=== PATIENT | male | born 1955 | race Caucasian/White ===

== ENCOUNTER 2019-02-19 03:39 | Inpatient (IN) | payer OTHER, BC ==
[2019-02-19] MEDS ORDERED: ASPIRIN 81 MG CHEWABLE TAB PO ONE (03:43)
[2019-02-19] MEDS ORDERED: NS 1,000 ML IV ONE (03:43)
--- NOTE | 2019-02-19 03:44 | EDPHY ---
H & P Time Seen by Provider: 02/19/19 03:56 HPI/ROS: HPI CHIEF COMPLAINT: Chest pressure. HISTORY OF PRESENT ILLNESS: Patient is a 63-year-old male, he presents emergency room with chest pressure. Patient reports to me this started much earlier tonight. However he went for walk tonight and had worn labored breathing and chest tightness. Describes a chest tightness across his chest however more the right side radiating to his right shoulder. He denies any pleuritic pain. However does state when he went for a walk today he was more labored than usual. He denies any pleuritic pain, denies any hemoptysis. No history of DVT or PE. Patient decided come the emergency room as he could not get sleep and had ongoing chest tightness. It is Noted that he is from out of town and flew [place], to visit his sister here in town. Past Medical History: Significant medical history for hyperlipidemia, diabetes denies coronary artery disease. Past Surgical History: Hand surgery, and knee surgery. Social History: Denies daily use of drugs alcohol tobacco. From [place] he does report is [address] he lives. He does know entire elevation here. Family History: Significant for coronary artery disease in his father with a CABG, additionally sitting for coronary artery disease in his sister with multiple stents. ROS REVIEW OF SYSTEMS: 10 Systems were reviewed and negative with the exception of the elements mentioned in the history of present illness. Exam Constitutional triage nursing summary reviewed, vital signs reviewed, awake/ alert. Noted be hypertensive upon arrival. Eyes normal conjunctivae and sclera, EOMI, PERRLA. HENT normal inspection, atraumatic, moist mucus membranes, no epistaxis, neck supple/ no meningismus, no raccoon eyes. Respiratory clear to auscultation bilaterally, normal breath sounds, no respiratory distress, no wheezing. Cardiovascular rate normal, regular rhythm, no murmur, no edema, distal pulses normal. Gastrointestinal soft, non-tender, no rebound, no guarding, normal bowel sounds, no distension, no pulsatile mass. Genitourinary no CVA tenderness. Musculoskeletal no midline vertebral tenderness, full range of motion, no calf swelling, no tenderness of extremities, no meningismus, good pulses, neurovascularly intact. Skin pink, warm, & dry, no rash, skin atraumatic. Neurologic awake, alert and oriented x 3, AAOx3, moves all 4 extremities equally, motor intact, sensory intact, CN II-XII intact, normal cerebellar, normal vision, normal speech. Psychiatric normal mood/affect. Heme/Lymph/Immune no lymphadenopathy. Differential Diagnosis: Differential diagnosis includes but is not limited to: ACS, atypical chest pain, pneumothorax, pneumonia, pulmonary embolism, aortic dissection, congestive heart failure, tumor, musculoskeletal pain, esophageal pain, GERD, peptic ulcer disease, pancreatitis Medical Decision Making: Plan for this patient IV establishment with athletic monitor, EKG, troponin rule out acute coronary syndrome, basic labs, chest x-ray , full-dose aspirin, nitroglycerin to see if this improves his chest tightness. Check D-dimer. Re-evaluation: EKG interpretation by me on record in [facility] system. Impression time of EKG 3:50 a.m., sinus rhythm rate of 90 left anterior fascicular block present. I do not appreciate acute ST elevation. No old EKG to compare to. HEART Score for Major Cardiac Events from [employer] on 02/19/2019 All calculations should be rechecked by clinician prior to use RESULT SUMMARY: 5 points Moderate Score (4-6 points) Risk of MACE of 12-16.6%. INPUTS: History > 2 = Highly suspicious EKG > 0 = Normal Age > 1 = 45-64 Risk factors > 2 = 3 risk factors or history of atherosclerotic disease Initial troponin > 0 = normal limit X-ray of the chest reviewed shows slightly wide mediastinum. Trop noted to be 0.07 D-dimer negative. Given the patient's wide mediastinum on chest x-ray plan for CT angiogram chest. Discussed CT imaging of his chest and agrees for CT angiogram for mediastinum on chest x-ray. Patient received 2 doses of nightly certain he emergent minimal improvement. Additionally received 50 mcgg IV fentanyl for pain control this improved discomfort. Plan for this patient admit to the hospitalist service for further cardiac evaluation. Patient agrees for this. Additionally consult the hospitalist service Dr. Ortez for admission. CT angiogram of the chest shows no evidence of pulmonary embolism, Probable mild bibasilar illness atelectasis but very mild interstitial pneumonia of the left lung base is not excluded. This was faxed me by direct Radiology at 6:20 a.m. Plan for hospital admission. Patient agrees. Hospitalist service consult. Source: Patient Constitutional: Initial Vital Signs Temperature (C) 36.9 C 02/19/19 03:44 Heart Rate 92 02/19/19 03:44 Respiratory Rate 17 02/19/19 03:44 Blood Pressure 164/108 H 02/19/19 03:44 O2 Sat (%) 94 02/19/19 03:44 O2 Delivery Mode Room Air Allergies/Adverse Reactions: metformin Allergy (Verified 02/19/19 03:43) morphine Allergy (Verified 02/19/19 03:43) Home Medications: Medication Instructions Recorded Atorvastatin Calcium [Lipitor 10 10 mg PO DAILY 02/19/19 mg (*)] Empagliflozin [Jardiance] 10 mg PO DAILY 02/19/19 Ibuprofen [Motrin (*)] 400 - 600 mg PO Q8H PRN 02/19/19 Meloxicam 15 mg PO DAILY 02/19/19 Medical Decision Making - Data Points Laboratory Results: Laboratory Results 02/19/19 04:04 02/19/19 04:04 Medications Given: Acetaminophen (Tylenol) 650 mg PO Q4HRS PRN PRN Reason: Pain, Mild/Fever, Can Take PO Stop: 08/18/19 06:15 Last Admin: 02/19/19 20:29 Dose: 650 mg Atorvastatin Calcium (Lipitor) 20 mg PO HS [facility] Stop: 08/18/19 20:59 Last Admin: 02/19/19 20:29 Dose: 20 mg Enoxaparin Sodium (Lovenox) 100 mg SC BID [facility] Stop: 08/18/19 20:59 Last Admin: 02/19/19 20:29 Dose: 100 mg Sodium Chloride (Ns) 1,000 mls @ 100 mls/hr IV CONT YESSI Stop: 08/18/19 08:59 Last Admin: 02/19/19 09:22 Dose: 1,000 mls Insulin Human Lispro (Humalog Lispro) 0 unit SC TIDMEAL YESSI PRN Reason: Protocol Stop: 08/18/19 17:59 Last Admin: 02/19/19 17:18 Dose: Not Given Metoprolol Tartrate (Lopressor) 25 mg PO BID [facility] Stop: 08/18/19 10:59 Last Admin: 02/19/19 20:28 Dose: 25 mg Nitroglycerin (Nitro-Bid 2%) 0.5 inch TP Q6HRS YESSI Stop: 08/18/19 11:59 Last Admin: 02/19/19 23:53 Dose: 0.5 inch Tramadol HCl (Ultram) 50 mg PO Q6HRS PRN PRN Reason: Pain, Moderate Able to Take PO Stop: 08/18/19 12:25 Last Admin: 02/20/19 03:34 Dose: 50 mg Discontinued Medications Aspirin (Aspirin) 324 mg PO EDNOW ONE Stop: 02/19/19 03:44 Last Admin: 02/19/19 03:59 Dose: 324 mg Aspirin Buffered (Aspirin Ec) 325 mg PO ONCALL ONE Stop: 02/19/19 08:48 Last Admin: 02/19/19 09:49 Dose: 325 mg Diazepam (Valium) 5 mg PO ONCALL ONE Stop: 02/19/19 08:48 Last Admin: 02/19/19 09:49 Dose: 5 mg Diphenhydramine HCl (Benadryl) 25 mg PO ONCALL ONE Stop: 02/19/19 08:48 Last Admin: 02/19/19 09:49 Dose: 25 mg Enoxaparin Sodium (Lovenox) 100 mg SC ONCE ONE Stop: 02/19/19 07:35 Last Admin: 02/19/19 09:53 Dose: Not Given Famotidine (Pepcid) 20 mg PO ONCALL ONE Stop: 02/19/19 08:48 Last Admin: 02/19/19 09:49 Dose: 20 mg Fentanyl (Sublimaze) 50 mcg IVP EDNOW ONE Stop: 02/19/19 04:18 Last Admin: 02/19/19 04:25 Dose: 50 mcg Fentanyl (Sublimaze) 50 mcg IVP ONCE ONE Stop: 02/19/19 07:29 Last Admin: 02/19/19 07:46 Dose: 50 mcg Sodium Chloride (Ns) 1,000 mls @ 0 mls/hr IV EDNOW ONE; Wide Open PRN Reason: Protocol Stop: 02/19/19 03:44 Last Admin: 02/19/19 04:21 Dose: 1,000 mls Nitroglycerin (Nitrostat) 0.4 mg SL EDNOW ONE Stop: 02/19/19 03:56 Last Admin: 02/19/19 04:11 Dose: 1 tab Ondansetron HCl (Zofran) 4 mg IVP EDNOW ONE Stop: 02/19/19 04:24 Last Admin: 02/19/19 04:25 Dose: 4 mg Point of Care Test Results: Chemistry 02/19/19 04:08 POC Troponin I 0.07 ng/mL ng/mL (0.00-0.08) Departure - Departure Disposition: [facility] Inpatient Acute Clinical Impression: Chest pain Qualifiers: Chest pain type: unspecified Qualified Code(s): R07.9 - Chest pain, unspecified Condition: Fair
[2019-02-19] MEDS: NITROGLYCERIN 0.4 MG BTL SL ONE ×2 (04:00→04:11)
[2019-02-19] MEDS ORDERED: fentaNYL 100 MCG/2 ML INJ IVP ONE ×2 (04:17→07:28)
[2019-02-19 04:18] LABS: PLATELET COUNT 246 10^3/uL (150-400)
[2019-02-19] MEDS ORDERED: ONDANSETRON 4 MG/2 ML VIAL IVP ONE (04:23)
[2019-02-19 04:26] LABS: INR 1.03 (0.83-1.16); PROTIME(PATIENT) 13.1 SEC (12.0-15.0)
[2019-02-19] MEDS ORDERED: IOPAMIDOL (ISOVUE-370) 150 ML BTL IV ONE ×2 (05:04→09:50)
[2019-02-19] MEDS ORDERED: ONDANSETRON DISINTEGRATING 4 MG TAB PO PRN (06:16)
[2019-02-19] MEDS ORDERED: ONDANSETRON 4 MG/2 ML VIAL IVP PRN (06:16)
[2019-02-19] MEDS ORDERED: NITROGLYCERIN 0.4 MG BTL SL PRN (06:18)
--- NOTE | 2019-02-19 06:52 | PDGENHP ---
History and Physical - Chief Complaint Chest pain - History of Present Illness 63 yo obese M w/ DM presents with chest pain. The patient is visiting from [place] where he lives at around 3,000 feet elevation. He has noted band-like chest tightness across his chest for the past few days. He notes this increased with exertion and also involves radiation down his R arm and BUTCHER. He denies pleuritic component. Evaluation in the ED so far unremarkable with negative troponin and non-ischemic ECG. He has a positive family hx for CAD. He has also been hypertensive while here but does not take medications for this usually. Case discussed with ED physician Dr. Rivera; records reviewed and summarized above. History Information - Allergies/Home Medication List Allergies/Adverse Reactions: metformin Allergy (Verified 02/19/19 03:43) morphine Allergy (Verified 02/19/19 03:43) Home Medications: Jardiance 02/19/19 [Last Taken Unknown] I have personally reviewed and updated: family history, medical history - Past Medical History diabetes type 2 - Surgical History Additional surgical history: Orthopedic surgeries - Family History Positive for: CAD - Social History Smoking Status: Never smoked Review of Systems Review of Systems: ROS: 10pt was reviewed & negative except for what was stated in HPI & below Physical Exam Physical Exam: Temp Pulse Resp BP Pulse Ox 36.9 C 75 18 172/100 H 90 L 02/19/19 03:44 02/19/19 06:00 02/19/19 06:00 02/19/19 06:00 02/19/19 06:00 Constitutional: no apparent distress, obese Eyes: PERRL, EOMI Ears, Nose, Mouth, Throat: moist mucous membranes, no oral mucosal ulcers Cardiovascular: regular rate and rhythym, no murmur, rub, or gallop Respiratory: no respiratory distress, clear to auscultation Gastrointestinal: normoactive bowel sounds, soft, non-tender abdomen Skin: warm, normal color Musculoskeletal: full muscle strength, no muscle tenderness Neurologic: AAOx3, CN II-XII Intact Psychiatric: interacting appropriately, not anxious Lab Data & Imaging Review 02/19/19 04:04 02/19/19 04:04 WBC 8.32 10^3/uL (3.80-9.50) 02/19/19 04:04 RBC 5.12 10^6/uL (4.40-6.38) 02/19/19 04:04 Hgb 16.3 g/dL (13.7-17.5) 02/19/19 04:04 Hct 47.8 % (40.0-51.0) 02/19/19 04:04 MCV 93.4 fL (81.5-99.8) 02/19/19 04:04 MCH 31.8 pg (27.9-34.1) 02/19/19 04:04 MCHC 34.1 g/dL (32.4-36.7) 02/19/19 04:04 RDW 12.1 % (11.5-15.2) 02/19/19 04:04 Plt Count 246 10^3/uL (150-400) 02/19/19 04:04 MPV 10.3 fL (8.7-11.7) 02/19/19 04:04 Neut % (Auto) 56.6 % (39.3-74.2) 02/19/19 04:04 Lymph % (Auto) 31.5 % (15.0-45.0) 02/19/19 04:04 [place] % (Auto) 8.9 % (4.5-13.0) 02/19/19 04:04 Eos % (Auto) 2.4 % (0.6-7.6) 02/19/19 04:04 Baso % (Auto) 0.4 % (0.3-1.7) 02/19/19 04:04 Nucleat RBC Rel Count 0.0 % (0.0-0.2) 02/19/19 04:04 Absolute Neuts (auto) 4.71 10^3/uL (1.70-6.50) 02/19/19 04:04 Absolute Lymphs (auto) 2.62 10^3/uL (1.00-3.00) 02/19/19 04:04 Absolute Monos (auto) 0.74 10^3/uL (0.30-0.80) 02/19/19 04:04 Absolute Eos (auto) 0.20 10^3/uL (0.03-0.40) 02/19/19 04:04 Absolute Basos (auto) 0.03 10^3/uL (0.02-0.10) 02/19/19 04:04 Absolute Nucleated RBC 0.00 10^3/uL (0-0.01) 02/19/19 04:04 Immature Gran % 0.2 % (0.0-1.1) 02/19/19 04:04 Immature Gran # 0.02 10^3/uL (0.00-0.10) 02/19/19 04:04 PT 13.1 SEC (12.0-15.0) 02/19/19 04:04 INR 1.03 (0.83-1.16) 02/19/19 04:04 APTT 29.8 SEC (23.0-38.0) 02/19/19 04:04 D-Dimer < 0.27 ug/mLFEU (0.00-0.50) 02/19/19 04:04 Sodium 140 mEq/L (135-145) 02/19/19 04:04 Potassium 3.9 mEq/L (3.5-5.2) 02/19/19 04:04 Chloride 108 mEq/L (97-110) 02/19/19 04:04 Carbon Dioxide 19 mEq/l (22-31) L 02/19/19 04:04 Anion Gap 13 mEq/L (6-14) 02/19/19 04:04 BUN 22 mg/dL (7-23) 02/19/19 04:04 Creatinine 0.7 mg/dL (0.7-1.3) 02/19/19 04:04 Estimated GFR > 60 02/19/19 04:04 Glucose 145 mg/dL (70-100) H 02/19/19 04:04 Calcium 9.2 mg/dL (8.5-10.4) 02/19/19 04:04 POC Troponin I 0.07 ng/mL (0.00-0.08) 02/19/19 04:08 NT-Pro-B Natriuret Pep 129 pg/mL (0-125) H 02/19/19 04:04 Visualized and Interpreted Chest x-ray results: Yes Chest X-Ray results: no infiltrate Visualized and Interpreted EKG results: Yes EKG Interpretation: Positive for: normal sinsus rhythm, other (LAFB) Assessment & Plan Assessment: 63 yo obese M w/ hx of DM presents with chest pain. Plan: 1. Chest pain - With typical features including worsening with exertion and associated BUTCHER. His initial evaluation is negative including negative troponin and ECG (personally reviewed/interpreted) without signs of acute ischemia. HEART score of 4 denoting need for further evaluation. - Observe in PCU - Monitor on telemetry, trend cardiac enzymes (next at 1000) - ECG, NTG PRN for chest pain - Will order treadmill stress test for further evaluation 2. DM - On oral medications as an outpatient. - Continue home meds pending reconciliation Diet - NPO Code - Full Ppx - LMWH Dispo - Admit under observation status
[2019-02-19] MEDS ORDERED: ENOXAPARIN 100 MG/ML SYR SC ONE (07:34)
[2019-02-19] MEDS ORDERED: fentaNYL 100 MCG/2 ML INJ ONE ×2 (07:36→09:49)
--- NOTE | 2019-02-19 07:55 | CPEKG ---
Test Reason : OPEN Blood Pressure : / mmHG Vent. Rate : 090 BPM Atrial Rate : 089 BPM P-R Int : 165 ms QRS Dur : 100 ms QT Int : 394 ms P-R-T Axes : 013 -67 060 degrees QTc Int : 482 ms Sinus rhythm Left anterior fascicular block Borderline prolonged QT interval Confirmed by Gurpreet Ahmadi ([id number]) on 02/19/2019 7:55:08 AM Referred By: Gurpreet Ahmadi Confirmed By:Gurpreet Ahmadi
[2019-02-19] MEDS ORDERED: TEMAZEPAM 15 MG CAP PO PRN (08:47)
[2019-02-19] MEDS ORDERED: diphenhydrAMINE 25 MG CAP PO ONE (08:47)
[2019-02-19] MEDS ORDERED: FAMOTIDINE 20 MG TAB PO ONE (08:47)
[2019-02-19] MEDS ORDERED: DIAZEPAM 5 MG TAB PO ONE (08:47)
[2019-02-19] MEDS ORDERED: ASPIRIN EC 325 MG TAB PO ONE (08:47)
--- NOTE | 2019-02-19 08:56 | PDCARCONS ---
Cardiology Consult Reason for Consult: Chest pain concerning for angina. Chief Complaint: Chest pain. Requesting Physician: Dr. Ortez. History of Present Illness: This is a 63-year-old male visiting from [facility]. He has no known cardiovascular disease. He does, however, have an extensive cardiovascular risk factor profile that includes gender, age, history of type 2 diabetes mellitus, hyperlipidemia, hypertension, central obesity and prior heavy tobacco use. He and his arrived to [place] a day ago. They are here to attend a concert. He states that for several days prior to coming to [place] he had a sensation of being fatigued. He would also experience mild chest pressure with physical activity such as shoveling his driveway and chipping ice. Since arriving here his discomfort has gotten worse. Yesterday evening he was with his rushing to catch a bus. Apparently they were walking very briskly. At that time, he developed an "uncomfortable" sensation in his central chest. This was an unfamiliar feeling to him. He notes radiation to his right shoulder and right upper extremity to the mid forearm. Once he got to the bus and sat and rested and took several minutes for the discomfort to nai. Afterwards he felt uncomfortable and fatigued throughout the rest of the evening. He was unable to enjoyed the concert. Later that evening when he was trying to sleep E had a similar sensation at rest. He tried to prop up his head with his pillows to alleviate the discomfort. He got out of bed was pacing in his hotel room. The pain was not alleviated with these activities. As result he came to the emergency department. In talking to him about this discomfort the pain is not positional. There is no respirophasic component to the discomfort. He does have a history of GERD on occasion. He thinks that this is different from that sensation. He has not had any palpitations, dizziness or lightheadedness. In the emergency department his ECG was remarkable only for left anterior fascicular block. His initial point of care troponin was negative. A subsequent troponin was 0.1. A chest CTA was negative for PE. Currently he is pain-free. History Information - Allergies/Home Medication List Allergies/Adverse Reactions: metformin Allergy (Verified 02/19/19 03:43) morphine Allergy (Verified 02/19/19 03:43) Home Medications: Atorvastatin Calcium [Lipitor 10 mg (*)] 10 mg PO DAILY 02/19/19 [Last Taken 08:00] Empagliflozin [Jardiance] 10 mg PO DAILY 02/19/19 [Last Taken 02/18/19 08:00] Ibuprofen [Motrin (*)] 400 - 600 mg PO Q8H PRN 02/19/19 [Last Taken 02/18/19] Meloxicam 15 mg PO DAILY 02/19/19 [Last Taken 02/18/19 08:00] I have personally reviewed and updated: family history, medical history, social history, surgical history Past Medical History: Obesity, obstructive sleep apnea, hypertension, hyperlipidemia, osteoarthritis, type 2 diabetes mellitus, obesity, history of hepatitis C status post treatment. - Surgical History Additional surgical history: Previous arthroscopic knee surgery, left carpal tunnel surgery. - Family History Additional family history: There is no family history for premature atherosclerosis however his father did have bypass surgery in his 70s. His sister has stents. - Social History Smoking Status: Former smoker Alcohol Use: Other (He drinks several beers daily.) Drug Use: None Additional social history: He is . He has 2 sons that are 18. He lives in [facility] and is retired. He is visiting the local area with his . RAMY Risk Evaluation age greater or equal to 65: yes greater or equal to 3 CAD risk factors: yes known CAD(stenosis greater or eqaul to 50%): no ASA use in past 7 days: no severe angina(greater or equal to 2 episodes in 24hrs): yes EKG ST changes greater or equal to 0.5mm: no positive cardiac marker: yes Total Score: 4 RAMY Score: 19.9% risk Physical Exam Physical Exam: Temp Pulse Resp BP Pulse Ox 36.8 C 663 H 15 160/95 H 97 02/19/19 08:07 02/19/19 08:07 02/19/19 08:07 02/19/19 08:07 02/19/19 08:07 O2 (L/minute) 3 Constitutional: no apparent distress, appears nourished, not in pain Eyes: PERRL, anicteric sclera, EOMI Ears, Nose, Mouth, Throat: moist mucous membranes, hearing normal, ears appear normal, no oral mucosal ulcers Cardiovascular: regular rate and rhythym, no murmur, rub, or gallop, No edema Respiratory: no respiratory distress, no rales or rhonchi, clear to auscultation Gastrointestinal: normoactive bowel sounds, soft, non-tender abdomen, no palpable masses Genitourinary: no bladder fullness, no bladder tenderness Skin: warm, normal color, no rashes or abrasions, no fluctuance, no induration, No mottled Musculoskeletal: full muscle strength, no muscle tenderness, normal joint ROM, no joint effusions Psychiatric: interacting appropriately, not anxious, not encephalopathic, thought process linear Lymph, Heme, Immunologic: no cervical LAD, no supraclavicular LAD Lab and Imaging 02/19/19 04:04 02/19/19 04:04 WBC 8.32 10^3/uL (3.80-9.50) 02/19/19 04:04 RBC 5.12 10^6/uL (4.40-6.38) 02/19/19 04:04 Hgb 16.3 g/dL (13.7-17.5) 02/19/19 04:04 Hct 47.8 % (40.0-51.0) 02/19/19 04:04 MCV 93.4 fL (81.5-99.8) 02/19/19 04:04 MCH 31.8 pg (27.9-34.1) 02/19/19 04:04 MCHC 34.1 g/dL (32.4-36.7) 02/19/19 04:04 RDW 12.1 % (11.5-15.2) 02/19/19 04:04 Plt Count 246 10^3/uL (150-400) 02/19/19 04:04 MPV 10.3 fL (8.7-11.7) 02/19/19 04:04 Neut % (Auto) 56.6 % (39.3-74.2) 02/19/19 04:04 Lymph % (Auto) 31.5 % (15.0-45.0) 02/19/19 04:04 [place] % (Auto) 8.9 % (4.5-13.0) 02/19/19 04:04 Eos % (Auto) 2.4 % (0.6-7.6) 02/19/19 04:04 Baso % (Auto) 0.4 % (0.3-1.7) 02/19/19 04:04 Nucleat RBC Rel Count 0.0 % (0.0-0.2) 02/19/19 04:04 Absolute Neuts (auto) 4.71 10^3/uL (1.70-6.50) 02/19/19 04:04 Absolute Lymphs (auto) 2.62 10^3/uL (1.00-3.00) 02/19/19 04:04 Absolute Monos (auto) 0.74 10^3/uL (0.30-0.80) 02/19/19 04:04 Absolute Eos (auto) 0.20 10^3/uL (0.03-0.40) 02/19/19 04:04 Absolute Basos (auto) 0.03 10^3/uL (0.02-0.10) 02/19/19 04:04 Absolute Nucleated RBC 0.00 10^3/uL (0-0.01) 02/19/19 04:04 Immature Gran % 0.2 % (0.0-1.1) 02/19/19 04:04 Immature Gran # 0.02 10^3/uL (0.00-0.10) 02/19/19 04:04 PT 13.1 SEC (12.0-15.0) 02/19/19 04:04 INR 1.03 (0.83-1.16) 02/19/19 04:04 APTT 29.8 SEC (23.0-38.0) 02/19/19 04:04 D-Dimer < 0.27 ug/mLFEU (0.00-0.50) 02/19/19 04:04 Sodium 140 mEq/L (135-145) 02/19/19 04:04 Potassium 3.9 mEq/L (3.5-5.2) 02/19/19 04:04 Chloride 108 mEq/L (97-110) 02/19/19 04:04 Carbon Dioxide 19 mEq/l (22-31) L 02/19/19 04:04 Anion Gap 13 mEq/L (6-14) 02/19/19 04:04 BUN 22 mg/dL (7-23) 02/19/19 04:04 Creatinine 0.7 mg/dL (0.7-1.3) 02/19/19 04:04 Estimated GFR > 60 02/19/19 04:04 Glucose 145 mg/dL (70-100) H 02/19/19 04:04 Calcium 9.2 mg/dL (8.5-10.4) 02/19/19 04:04 POC Troponin I 0.07 ng/mL (0.00-0.08) 02/19/19 04:08 Troponin I 0.110 ng/mL (0.000-0.034) H 02/19/19 06:33 NT-Pro-B Natriuret Pep 129 pg/mL (0-125) H 02/19/19 04:04 Visualized and Interpreted Chest x-ray results: Yes Chest X-ray Interpretation: no infiltrate, normal Visualized and Interpreted imaging results: No Visualized and Interpreted EKG results: Yes EKG additional interpertation: Normal sinus rhythm. Left axis deviation consistent with a left anterior fascicular block. Previous inferior infarct cannot be excluded. Telemetry: Normal sinus rhythm. Echocardiogram: None. A/P Assessment: This is a pleasant 63-year-old male who has no known cardiovascular disease who does, however, have an extensive and essentially coronary risk equivalent risk factor profile who presents with a clinical syndrome that suggests unstable angina pectoris. His near-term risk for cardiovascular events is very high given the fact that he is experiencing crescendo angina and has positive cardiac biomarkers. As result, my recommendation was for an upfront invasive diagnostic strategy. He and I discuss the risks, benefits and alternatives of cardiac catheterization. At this point, I think that we should proceed with angiography this morning. He is in agreement. Further recommendations will be made pending the results of that study. Review of Systems Review of Systems: - Review of Systems Constitutional: no symptoms reported EENTM: no symptoms reported Respiratory: see HPI Cardiac: see HPI Gastrointestinal/Abdominal: no symptoms reported Genitourinary: no symptoms Musculoskelatal: no symptoms Skin: no symptoms Neurological: no symptoms Hematologic/Lymphatic: no symptoms reported Immunologic/allergic: no symptoms reported All Other Systems: Reviewed and Negative
[2019-02-19] MEDS ORDERED: NS 1,000 ML IV SCH (09:00)
[2019-02-19] MEDS ORDERED: ENOXAPARIN 40 MG/0.4 ML SYR SC SCH (09:00)
[2019-02-19] MEDS ORDERED: LIDOCAINE 1% 300 MG/30 ML SDV ONE (09:49)
[2019-02-19] MEDS ORDERED: MIDAZOLAM 2 MG/2 ML VIAL ONE (09:50)
[2019-02-19] MEDS ORDERED: HEPARIN 10,000 UNIT/10 ML MDV (1,000 UNIT/ML) ONE (09:50)
[2019-02-19] MEDS ORDERED: VERAPAMIL 5 MG/2 ML VIAL ONE (09:50)
--- NOTE | 2019-02-19 10:20 | PDPROPOC ---
Sedation Plan of Care Sedation Plan of Care: vital signs stable, mental status noted, patient educated of risks, benefits, alternatives, patient can tolerate sedation ASA Classification: ASA 2 Planned drugs: fentanyl, midazolam Mallampati Score: Class 2 Mallampati Reference Image: Patient passed 3-3-2 rule?: Yes
--- NOTE | 2019-02-19 10:20 | PDHPUP ---
History & Physical Update H&P update statement: This history and physical update is based on an assessment of the patient which was completed after admission or registration (within 24 hours), but prior to the surgery/procedure. H&P update: H&P reviewed & patient examined, no change in patient's condition since H&P completed
[2019-02-19] MEDS ORDERED: ATROPINE SULFATE 1 MG/10 ML SYR IVP PRN (10:44)
--- NOTE | 2019-02-19 11:00 | PDDXCAT ---
Diagnostic Cath Note - . Date: 02/19/19 Pool Coordinator: Leon Indication: other (Unstable angina pectoris.) - Procedure Access: right groin Procedure: left heart catheterization, coronary angiography, left ventriculogram - Materials Left Heart Cath size: 6F Left Heart Cath materials: standard multipack (JL4, JR4, pigtail) - Findings-Left Heart Catheterization LM: Left main is a large caliber vessel which bifurcates into left anterior descending and circumflex distributions. There is distal tapering to 20%. There are no obstructive lesions. LAD: Proximally, left anterior descending is a moderate caliber vessel. There is a complex trifurcation lesion involving the 1st diagonal branch, 1st septal field test engineer and the LAD. This results in a 90% proximal LAD stenosis. The mid LAD contains a long segment of severe disease up to 90%. The distal vessel contains a region which would be a good target for grafting prior to severe distal disease. The 1st diagonal branch is a large caliber diagonal which bifurcates proximally. In the midportion of this vessel there was a 70% lesion. LCX: In the proximal vessel the circumflex is moderate in caliber. The vessel is then occluded in the proximal/mid segment. There is late filling of a large obtuse marginal branch via ipsilateral collaterals. RCA: The right coronary artery is a large caliber dominant vessel. There is a large posterior descending as well as a posterolateral branch identified. A 30 % proximal lesion is noted. There was a 50% mid lesion at the bend prior to coursing onto the inferior wall of the heart. LVEF: 65%. No significant mitral regurgitation. Wall motion: Normal. Complications: None. Estimated blood loss: <50ml Closure method: Angioseal Assessment: 1. Multivessel coronary artery disease as described above involving the proximal LAD. 2. Preserved left ventricular systolic function without obvious valvular heart disease. 3. Elevated end-diastolic pressure. 4. Clinical presentation with unstable angina pectoris in the setting of longstanding type 2 diabetes mellitus. Plan: Patient will be medically stabilized. We will consult Cardiovascular surgery regarding surgical epicardial coronary revascularization. Intervention: None. Patient Problems: Problems Problem Status Onset Chest pain Acute
[2019-02-19] MEDS ORDERED: NITROGLYCERIN 2% 1 GM PACKET ONE (11:30)
[2019-02-19] MEDS: NITROGLYCERIN 2% 1 GM PACKET TP SCH ×3 (11:30→23:53)
[2019-02-19] MEDS: traMADol 50 MG TAB PO PRN (13:46)
[2019-02-19] MEDS: METOPROLOL TARTRATE 25 MG TAB PO SCH ×2 (13:47→20:28)
[2019-02-19] MEDS ORDERED: D50W 25 GM/50 ML SYR IVP PRN (16:43)
--- NOTE | 2019-02-19 16:45 | HOSPPROG ---
Hospitalist Progress Note Assessment/Plan: #CAD: cath showed multi-vessel disease -CABG planned for Thursday per CT surgery -statin, BB, Lovenox #DM2: Jardiance, SSI #Obesity: counseled on diet/exercise #Accelerated HTN: BB added Inpatient admission for telemetry, CABG Thursday Subjective: no chest pain now Objective: Vital Signs Temp Pulse Resp BP Pulse Ox 37.1 C 77 17 151/93 H 96 02/19/19 15:28 02/19/19 15:28 02/19/19 15:28 02/19/19 15:28 02/19/19 15:28 02/18/19 02/19/19 02/20/19 05:59 05:59 05:59 Intake Total 1450 Balance 1450 PT 13.1 SEC (12.0-15.0) 02/19/19 04:04 INR 1.03 (0.83-1.16) 02/19/19 04:04 - Physical Exam Constitutional: obese Eyes: PERRL Ears, Nose, Mouth, Throat: moist mucous membranes Cardiovascular: regular rate and rhythym Respiratory: no respiratory distress Gastrointestinal: normoactive bowel sounds Genitourinary: no bladder fullness Skin: warm Musculoskeletal: full muscle strength Neurologic: AAOx3, CN II-XII Intact ICD10 Worksheet Patient Problems: Problems Problem Status Onset Chest pain Acute
[2019-02-19] MEDS: INSULIN LISPRO 100 UNIT/ML SC SCH (17:18)
[2019-02-19] MEDS: ENOXAPARIN 100 MG/ML SYR SC SCH (20:29)
[2019-02-19] MEDS: ACETAMINOPHEN 325 MG TAB PO PRN (20:29)
[2019-02-19] MEDS: ATORVASTATIN CALCIUM 20 MG TAB PO SCH (20:29)
--- NOTE | 2019-02-19 22:05 | GCON ---
[f rep st] CONSULTATION DATE OF CONSULTATION: 02/19/2019 REASON FOR CONSULTATION: Multivessel coronary artery disease. HISTORY: The patient is a 63-year-old gentleman visiting from [place] for a concert and has develope d angina. His past medical history is remarkable for diabetes, hypertension, and smoking. Because h is chest discomfort was not relieved by rest, the patient came to the emergency department and was ad mitted with coronary artery disease and mildly elevated troponin. PAST MEDICAL HISTORY: As listed above, hypertension, hyperlipidemia, obesity, tobacco use, type 2 di abetes. MEDICATIONS: Atorvastatin, empagliflozin, ibuprofen and meloxicam. SOCIAL HISTORY: He is . He is a former smoker and drinks several beers a day. PHYSICAL EXAMINATION: GENERAL: Today, he is recumbent in bed and pain free. HEENT: Shows normal s clerae. Dentition is in good condition. CARDIOVASCULAR: No murmur. RESPIRATORY: Lungs are clear. SKIN: Warm and dry. Saphenous vein appears to be intact. LABORATORY STUDIES: Hematocrit 47.8, creatinine 0.7. Review of his cardiac catheterization shows multivessel coronary disease with subtotal occlusion of t he LAD and circumflex. There is also disease in the proximal diagonal and the right coronary artery. IMPRESSION: Multivessel coronary artery disease with unstable angina in a 63-year-old diabetic. RECOMMENDATIONS: I have recommended the patient undergo surgical revascularization. We discussed th e risks, benefits, and alternatives, and he is agreeable to proceed. We are planning for surgery on Thursday morning as long as he remains pain free. /[id number]/MODL
[2019-02-20] MEDS: traMADol 50 MG TAB PO PRN (03:34)
[2019-02-20] MEDS: NITROGLYCERIN 2% 1 GM PACKET TP SCH ×4 (06:05→22:19)
--- NOTE | 2019-02-20 08:28 | ECHO ---
[email or web address] [address] [address] Main: [phone] Echocardiography Examination Transthoracic Name: EMORY MICHELLE MR#: [id number] Study Date: 02/19/2019 Study Time: 02:15 PM Date of : 1955 Age: 63 year(s) Height: 172.7 cm (68 in.) Weight: 99.34 kg (219 lb.) BSA: 2.12 m2 Gender: Male Examination: Echo Contrast: Image Quality: Adequate Rhythm: Heart Rate: BP: 157 mmHg/98 mmHg Indication: Coronary artery disease Procedure Staff Referring Physician: Material Handler Loader: Lesley Hadley [facility] Reading Physician: Juan Quintero MD Requesting Provider: Ordering Physician: Juan Quintero MD Indication: Coronary artery disease Measurements Chambers AV/MV Label Value Normal Value Label Value Normal Value IVSd, 2D 1.5 cm (0.6cm - 1.1cm) AV PGmax 4 mmHg LVDd, 2D 5.4 cm (4.2cm - 5.9cm) AV PGmean 2 mmHg LVDs, 2D 3.6 cm (2.1cm - 4cm) AV Vmax 0.96 m/s LVOT PGmean 1 mmHg RADHA D (continuity eq. 2.9 cm2 LVOT Vmean 0.57 m/s VTI) LVOTd 2.3 cm (1.9cm - 2.1cm) MV A Vmax 0.73 m/s LVPWd, 2D 1.4 cm (0.6cm - 1cm) MV DT 271 ms RVDd, 2D 3.4 cm (1.9cm - 3.8cm) MV E' lateral 0.04 m/s LA Volume, BP 45 ml (18ml - 58ml) MV E' mean 0.05 m/s LADs, 2D 3.5 cm (3cm - 4cm) MV E' septal 0.06 m/s LAESV index, BP 21.2 ml/m2 MV E Vmax 0.37 m/s RA Area 14.7 cm2 MV E/A 0.51 Additional Vessels MV E/E' lateral 10 Label Value Normal Value MV E/E' mean 7.4 AoAsc 3.6 cm MV E/E' septal 6.6 (0.45 - 1.25) AoRoot, 2D 3.3 cm (1.4cm - 2.6cm) MV PHT 0.08 s IVC 1.7 cm (1.2cm - 2.3cm) MV PHT 80 ms MVA PHT 2.8 cm2 TV/PV Patient: EMORY MICHELLE Study Date: 02/19/2019 Page 1 of 2 02:15 PM Label Value Normal Value PV PGmax 3 mmHg PV Vmax, Caliper 0.92 m/s (0.6m/s - 0.9m/s) Conclusions Technically difficult study with poor acoustic windows. Normal left ventricular size and systolic function. LVEF estimated at 55-60%. No regional wall motion abnormalities however this study was suboptimal for excluding regionality. Normal diastolic function. Normal valvular structures. Trivial mitral regurgitation, trivial aortic regurgitation and trivial tricuspid regurgitation. Insufficient tricuspid regurgitant jet to estimate RVSP. Findings Technically difficult apical imaging due to body habitus - limited windows. Left Ventricle: Left ventricle is normal in size. EF range is estimated at 55 % - 60 %. There is moderate concentric left ventricular hypertrophy. Left ventricular diastolic function parameters are normal. Right Ventricle: Normal size right ventricle. Right ventricular systolic function is normal. Left Atrium: The left atrium is normal in size. Right Atrium: The right atrium is normal in size. Mitral Valve: Mitral valve appears structurally normal. Trivial mitral regurgitation. No mitral valve stenosis. Aortic Valve: Aortic leaflets are structurally normal. Trivial aortic regurgitation is present. There is no aortic stenosis. Tricuspid Valve: Tricuspid valve leaflets are structurally normal. Trivial tricuspid regurgitation. Pulmonic Valve: Pulmonic leaflets are structurally normal. Trivial pulmonic valve regurgitation is present. Aorta: The aortic root size in 2D measures 3.3 cm. The ascending aorta measures 3.6 cm. Aorta Measurements AoRoot, 2D is 3.3 cm. IVC: The inferior vena cava is normal in size. Pericardium: A pericardial fat pad is present. No pericardial effusion. Exam Details Procedure Ordered: Echo Procedure Status: Routine study Image Quality: Adequate Facility Location: Cardiac Echo 1 (No Signature Object) Patient: EMORY MICHELLE Study Date: 02/19/2019 Page 2 of 2 02:15 PM [id number]
--- NOTE | 2019-02-20 08:39 | HOSPPROG ---
Hospitalist Progress Note Assessment/Plan: #CAD: cath showed multi-vessel disease -CABG planned for Thursday per CT surgery -statin, BB increased to 50mg BID, Lovenox (hold after evening dose) -trop 9, repeat EKG #DM2: Jardiance, SSI #Obesity: counseled on diet/exercise #Accelerated HTN: BB added Inpatient admission for telemetry, CABG tomorrow Subjective: MARTINEZ overnight, no CP or SOB Objective: Vital Signs Temp Pulse Resp BP Pulse Ox 37.0 C 83 15 139/77 H 90 L 02/20/19 07:23 02/20/19 07:23 02/20/19 07:23 02/20/19 07:23 02/20/19 07:23 02/19/19 02/20/19 02/21/19 05:59 05:59 05:59 Intake Total 1750 Balance 1750 PT 13.1 SEC (12.0-15.0) 02/19/19 04:04 INR 1.03 (0.83-1.16) 02/19/19 04:04 - Time Spent With Patient Time Spent with Patient: greater than 35 minutes Time Spent with Patient: Greater than 35 minutes spent on this patients care, greater than 50% of time spent counseling, educating, and coordinating care regarding the above mentioned plan. - Physical Exam Constitutional: obese Eyes: PERRL Ears, Nose, Mouth, Throat: moist mucous membranes Cardiovascular: regular rate and rhythym, No edema Respiratory: no respiratory distress Gastrointestinal: normoactive bowel sounds Genitourinary: no bladder fullness Skin: warm Musculoskeletal: full muscle strength Neurologic: AAOx3, CN II-XII Intact ICD10 Worksheet Patient Problems: Problems Problem Status Onset Chest pain Acute
[2019-02-20] MEDS: INSULIN LISPRO 100 UNIT/ML SC SCH ×3 (08:42→18:15)
[2019-02-20] MEDS: METOPROLOL TARTRATE 25 MG TAB PO SCH (09:04)
[2019-02-20] MEDS: ENOXAPARIN 100 MG/ML SYR SC SCH ×2 (09:05→20:40)
--- NOTE | 2019-02-20 09:38 | SOAPPROG ---
SOETHAN Progress Note Assessment/Plan: Assessment: 1 NSTEMI. He presented with chest discomfort and elevated cardiac biomarkers. His ECG did not demonstrate any ischemic changes. Cardiac catheterization demonstrated multivessel CAD as outlined in a separate report. His ejection fraction appears to be normal. He has not had any recurrence of his index related complaints. Thus far, his troponin has peaked at 9. Plans are for coronary artery bypass graft surgery tomorrow as long as he remains stable. 2. Hypertension. Blood pressure is poorly controlled at this point. 3. Hyperlipidemia. He does have significant hypertriglyceridemia. I think this is likely related to poorly controlled diabetes. 4. Type 2 diabetes mellitus. Hemoglobin A1c currently pending. He is being treated with insulin per his outpatient dosing regimen. 5. Obstructive sleep apnea. 6. Obesity. Plan: 1. I have increased his metoprolol up to 50 mg twice daily. 2. I have also written to restart his aspirin which apparently was given yesterday however was not on his medication list for today. 3. His Lovenox will be discontinued after his p.m. Dose. 4. I would like him to have an ECG today. I have also written for an additional troponin to be drawn at noon. 5. As long as he remains stable will plan for CABG tomorrow. 02/20/19 09:39 Subjective: There have been no problems overnight. He has not experienced any significant anginal quality chest discomfort. On telemetry he has been in sinus rhythm with no arrhythmias. This morning he states he has a slight headache which he thinks is related to his nitroglycerin. He notes no shortness of breath. Hemodynamically he has been stable. Despite being on metoprolol he continues to be slightly tachycardic. He had an echocardiogram done. There is a full and separately dictated report on the chart. This demonstrated a normal ejection fraction without significant valvular heart disease. Objective: Vital Signs Temp Pulse Resp BP Pulse Ox 37.0 C 96 15 139/77 H 90 L 02/20/19 07:23 02/20/19 09:04 02/20/19 07:23 02/20/19 07:23 02/20/19 07:23 02/19/19 02/20/19 02/21/19 05:59 05:59 05:59 Intake Total 1750 Balance 1750 PT 13.1 SEC (12.0-15.0) 02/19/19 04:04 INR 1.03 (0.83-1.16) 02/19/19 04:04 Physical Exam - Physical Exam General Appearance: WD/WN, alert, no apparent distress EENT: PERRL/EOMI, normal ENT inspection, pharynx normal, TMs normal Neck: non-tender, full range of motion, supple, normal inspection Respiratory: chest non-tender, lungs clear, normal breath sounds Cardiac/Chest: normal peripheral pulses, regular rate, rhythm Peripheral Pulses: 2+: carotid (R), carotid (L), femoral (R), femoral (L), dorsalis-pedis (R), dorsalis-pedis (L) Abdomen: normal bowel sounds, non-tender, soft Male Genitalia: deferred Rectal: deferred Back: Normal inspection Skin: normal color, warm/dry Lymphatic: no adenopathy Extremities: normal range of motion, non-tender, normal inspection, normal capillary refill Neuro/Psych: no motor/sensory deficits, alert, normal mood/affect, oriented x 3 ICD10 Worksheet Patient Problems: Problems Problem Status Onset Chest pain Acute
--- NOTE | 2019-02-20 10:35 | SOAPPROG ---
SOAP Progress Note Assessment/Plan: PRE-OP CABG THURSDAY SEVERE 3V CAD - LM 20% p/mLAD 90% D1 70% pCx 100% pPDA/JC 30%/50%, TTE with LVEF 55-60% wo RVMA (suboptimal study). No significant valvular disease. CUS not indicated per Dr. Wright. Creatinine function normal. Started on BB and increased statin per Dr. Quintero. NSTEMI - troponin today 9.8 and yet to peak. Chest pain free on nitro patch. T2DM - A1c pending, home Jardiance RYLIE OBESITY HISTORY OF HEP C S/P RX PLAN: Consent obtained and placed in clear portion of patient's binder Pre-op orders placed Last Lovenox dose this evening NPO p MN Subjective: Denies chest pain. Headache has resolved. Objective: Vital Signs Temp Pulse Resp BP Pulse Ox 37.0 C 96 15 139/77 H 90 L 02/20/19 07:23 02/20/19 09:04 02/20/19 07:23 02/20/19 07:23 02/20/19 07:23 02/19/19 02/20/19 02/21/19 05:59 05:59 05:59 Intake Total 1750 Balance 1750 PT 13.1 SEC (12.0-15.0) 02/19/19 04:04 INR 1.03 (0.83-1.16) 02/19/19 04:04 VSS GEN: NAD, sitting upright HEENT: NCAT, MMM Resp: NC oxygen Extremities: no edema ICD10 Worksheet Patient Problems: Problems Problem Status Onset Chest pain Acute
--- NOTE | 2019-02-20 10:39 | ASMTCMCOM ---
CM Note CM Note Notes: Pt is a 63 y/o man admitted for chest pain. Pt is getting coronary artery bypass graft surgery tomorrow. Pt will most likely d/c independent when medically stable. CM available for changes. Plan: Independent Date Signed: 02/20/2019 10:38 AM Electronically Signed By:JOSE R Drake
[2019-02-20] MEDS: Empagliflozin [Jardiance] 10 MG PO SCH (12:19)
[2019-02-20] MEDS: ASPIRIN 325 MG TAB PO SCH (12:19)
--- NOTE | 2019-02-20 15:31 | PDMN ---
Medical Necessity Medical necessity: Pt meets IP criteria as of 02/19/19 per MD and MCG M-230 ( Myocardial Infarction): est los > 2 mn for NSTEMI with chest pain and multiple vessel disease noted during cardiac cath; requiring CABG, cardiac monitoring, medication management and post-op care. Hx, obesity and DM II.
[2019-02-20] MEDS: ACETAMINOPHEN 325 MG TAB PO PRN ×2 (16:52→22:23)
[2019-02-20] MEDS: METOPROLOL TARTRATE 50 MG TAB PO SCH (20:41)
[2019-02-20] MEDS: ATORVASTATIN CALCIUM 20 MG TAB PO SCH (20:41)
[2019-02-20] MEDS ORDERED: CHLORHEXIDINE GLUC HIBICLENS 118 ML BTL TP SCH (21:00)
[2019-02-21] MEDS ORDERED: CARDIOPLEGIC SOLUTION 1,052.8 ML PF ONE (06:00)
[2019-02-21] MEDS ORDERED: VERAPAMIL 5 MG, NITROGLYCERIN 2.5 MG, HEPARIN 500 UNIT, SODIUM BICARBONATE 0.2 MEQ in L... MISC ONE (06:00)
[2019-02-21] MEDS ORDERED: CITRATE DEXTROSE SOLN 500 ML BAG MISC ONE (06:00)
[2019-02-21] MEDS ORDERED: LIDOCAINE 1% 2 ML INJ ID PRN (06:00)
[2019-02-21] MEDS ORDERED: PHENYLEPHRINE HCL 50 MG in NS 250 ML IV ONE (06:00)
[2019-02-21] MEDS ORDERED: PAPAVERINE HCL 60 MG in NS 100 ML IV ONE (06:00)
[2019-02-21] MEDS ORDERED: NOREPINEPHRINE BITARTRATE 16 MG in NS 250 ML IV ONE (06:00)
[2019-02-21] MEDS ORDERED: AMINOCAPROIC ACID 5 GM/20 ML VIAL IV ONE (06:00)
[2019-02-21] MEDS ORDERED: MUPIROCIN 2% 22 GM OINT NS ONE (06:00)
[2019-02-21] MEDS ORDERED: INSULIN REGULAR HUMAN 100 UNIT in NS 100 ML IV ONE (06:00)
[2019-02-21] MEDS ORDERED: NS 1,000 ML IV ONE (06:00)
[2019-02-21] MEDS ORDERED: MANNITOL 25% 12.5 GM/50 ML VIAL IVP ONE (06:00)
[2019-02-21] MEDS ORDERED: ceFAZolin 2 GM/DEXTROSE 100 ML IV ONE (06:00)
--- NOTE | 2019-02-21 07:58 | PDHPUP ---
History & Physical Update H&P update statement: This history and physical update is based on an assessment of the patient which was completed after admission or registration (within 24 hours), but prior to the surgery/procedure. H&P update: no change in patient's condition since H&P completed
[2019-02-21] MEDS ORDERED: DOBUTamine 500 MG in D5W 250 ML IV ONE (08:00)
[2019-02-21] MEDS ORDERED: PAPAVERINE HCL 60 MG/2 ML SDV ONE (08:16)
[2019-02-21] MEDS ORDERED: CALCIUM CHLORIDE 1 GM/10 ML INJ ONE ×3 (08:45→08:47)
[2019-02-21] MEDS ORDERED: MILRINONE/DEXTROSE/100 ML BAG IV ONE (08:46)
[2019-02-21] MEDS ORDERED: niCARdipine/NACL/200 ML BAG IV ONE ×2 (08:46→23:30)
[2019-02-21] MEDS ORDERED: AMIODARONE HCL 150 MG/3 ML VIAL ONE ×2 (08:46→08:48)
[2019-02-21] MEDS ORDERED: PROTAMINE SULFATE 50 MG/5 ML VIAL IVP ONE (08:46)
[2019-02-21] MEDS ORDERED: ADENOSINE 6 MG/2 ML VIAL ONE (08:46)
[2019-02-21] MEDS ORDERED: NA BICARBONATE 50 MEQ/50 ML VIAL ONE (08:46)
[2019-02-21] MEDS ORDERED: HEPARIN 10,000 UNIT/10 ML MDV (1,000 UNIT/ML) ONE ×2 (08:46→08:48)
[2019-02-21] MEDS ORDERED: AMINOCAPROIC ACID 5 GM/20 ML VIAL ONE ×2 (08:46→08:47)
[2019-02-21] MEDS ORDERED: DOPamine/DEXTROSE 400 MG/250 ML BAG IV ONE (08:46)
[2019-02-21] MEDS ORDERED: ALBUMIN 5% 250 ML BOTTLE IV ONE ×2 (08:47→15:30)
[2019-02-21] MEDS ORDERED: ceFAZolin 1 GM VIAL ONE (08:47)
[2019-02-21] MEDS ORDERED: NITROGLYCERIN/D5W 50 MG/250 ML BOTTLE IV ONE (08:47)
[2019-02-21] MEDS ORDERED: SODIUM BICARBONATE 50 MEQ/50 ML SYR ONE (08:47)
[2019-02-21] MEDS ORDERED: CITRATE DEXTROSE SOLN 500 ML BAG ONE (08:48)
[2019-02-21] MEDS ORDERED: LIDOCAINE 2% 100 MG/5 ML SYR ONE (08:48)
[2019-02-21] MEDS ORDERED: methylPREDNISolone SOD SUCC 1 GM/8 ML VIAL ONE (08:48)
[2019-02-21] MEDS ORDERED: MAGNESIUM SULFATE 1 GM/2 ML VIAL ONE (08:48)
[2019-02-21] MEDS ORDERED: MUPIROCIN 2% 22 GM OINT ONE (09:51)
[2019-02-21] MEDS ORDERED: CEFAZOLIN 2 GM/DEXTROSE/100 ML BAG IV ONE (09:51)
[2019-02-21] MEDS ORDERED: MIDAZOLAM 2 MG/2 ML VIAL IVP ONE (10:13)
--- NOTE | 2019-02-21 10:13 | PDANEPAE ---
ANE History of Present Illness cab ANE Past Medical History - Cardiovascular History Hx Hypertension: Yes Hx Arrhythmias: No Hx Chest Pain: Yes Hx Coronary Artery / Peripheral Vascular Disease: Yes Hx CHF / Valvular Disease: No Hx Palpitations: No - Pulmonary History Hx COPD: No Hx Asthma/Reactive Airway Disease: No Hx Recent Upper Respiratory Infection: No Hx Oxygen in Use at Home: No O2 in Use at Home (L/minute): 2 Hx Sleep Apnea: No Sleep Apnea Screening Result - Last Documented: Positive - Neurologic History Hx Cerebrovascular Accident: No Hx Seizures: No Hx Dementia: No - Endocrine History Hx Diabetes: Yes Hypothyroid: No Hyperthyroid: No Obesity: no - Renal History Hx Renal Disorders: No - Liver History Hx Hepatic Disorders: No - Neurological & Psychiatric Hx Hx Neurological and Psychiatric Disorders: No ANE Review of Systems Review of Systems: - Exercise capacity Exercise capacity: <4 METS ANE Patient History - Allergies Allergies/Adverse Reactions: metformin Allergy (Verified 02/19/19 03:43) morphine Allergy (Verified 02/19/19 03:43) - Home Medications Home Medications: Atorvastatin Calcium [Lipitor 10 mg (*)] 10 mg PO DAILY 02/19/19 [Last Taken 08:00] Empagliflozin [Jardiance] 10 mg PO DAILY 02/19/19 [Last Taken 02/18/19 08:00] Ibuprofen [Motrin (*)] 400 - 600 mg PO Q8H PRN 02/19/19 [Last Taken 02/18/19] Meloxicam 15 mg PO DAILY 02/19/19 [Last Taken 02/18/19 08:00] - NPO status NPO Status: no food or drink >8 hours NPO Since - Liquids (Date): 02/21/19 NPO Since - Liquids (Time): 00:00 NPO Since - Solids (Date): 02/21/19 NPO Since - Solids (Time): 00:00 - Anes Hx Anes Hx: no prior problems - Smoking Hx Smoking Status: Former smoker - Alcohol Use Alcohol Use: Other (He drinks several beers daily.) ANE Labs/Vital Signs - Labs Result Diagrams: 02/19/19 04:04 02/19/19 04:04 - Vital Signs Blood Pressure: 152/100 Heart Rate: 94 Respiratory Rate: 94 O2 Sat (%): 98 Height: 172.72 cm Weight: 97.25 kg ANE Physical Exam - Airway Mallampati Score: Class 2 Mouth exam: normal dental/mouth exam - Pulmonary Pulmonary: no respiratory distress - Cardiovascular Cardiovascular: regular rate and rhythym - ASA Status ASA Status: III ANE Anesthesia Plan Anesthesia Plan: general endotracheal anesthesia Lines/Monitors: arterial line, central line, SONALI (pa cath)
[2019-02-21] MEDS ORDERED: SUCCINYLCHOLINE CHLORIDE 200 MG/10 ML SYR IVP ONE (10:21)
[2019-02-21] MEDS ORDERED: ROCURONIUM 100 MG/10 ML VIAL ONE (10:21)
[2019-02-21] MEDS ORDERED: PHENYLEPHRINE 10 MG/ML SDV ONE (10:21)
[2019-02-21] MEDS ORDERED: EPINEPHrine 1 MG/ML INJ ONE (10:21)
[2019-02-21] MEDS ORDERED: LIDOCAINE 2% 5 ML SDV ONE (10:21)
[2019-02-21] MEDS ORDERED: MIDAZOLAM 2 MG/2 ML VIAL ONE ×3 (10:29→14:42)
[2019-02-21] MEDS ORDERED: fentaNYL 250 MCG/5 ML INJ ONE ×2 (10:29→10:30)
[2019-02-21] MEDS ORDERED: PROPOFOL 200 MG/20 ML VIAL ONE (10:30)
[2019-02-21] MEDS ORDERED: LABETALOL HCL 5 MG/ML 20 ML MDV ONE (11:40)
[2019-02-21] MEDS ORDERED: ISOFLURANE 100 ML BOTTLE IH ONE (12:39)
[2019-02-21] MEDS ORDERED: ROCURONIUM 50 MG/5 ML VIAL ONE (13:06)
[2019-02-21] MEDS ORDERED: PROPOFOL/EMULSION 500 MG/50 ML BOTTLE IV ONE (15:06)
--- NOTE | 2019-02-21 15:47 | POSTOPPROG ---
Post Op Note Date of Operation: 02/21/19 Surgeon: Juan Wright Assistant: Te MOODY Anesthesiologist: Srikanth KEE Anesthesia: GET(General Endotracheal) Pre-op Diagnosis: cad Post-op Diagnosis: same Procedure: s/p cabgx4 (FARMER-LAD, SVG-RCA, SVG-D1-M1) Findings: diseased targets Inf/Abcess present in the surg proc area at time of surgery?: No Depth: Organ Space EBL: 100-500 Complications: none Drains: Other (Chest tubes (1 left, 1 right, 1 mediastinal), 2 V Wires) Specimen(s): none
[2019-02-21] MEDS ORDERED: MEPERIDINE 25 MG/0.5 ML AMP IVP PRN (15:50)
[2019-02-21] MEDS ORDERED: ONDANSETRON DISINTEGRATING 4 MG TAB PO PRN (15:50)
[2019-02-21] MEDS ORDERED: POLYETHYLENE GLYCOL 3350 17 GM PKT PO PRN (15:50)
[2019-02-21] MEDS ORDERED: MAGNESIUM HYDROXIDE 30 ML UDCUP PO PRN (15:50)
[2019-02-21] MEDS ORDERED: PANTOPRAZOLE SODIUM 40 MG VIAL IVP ONE (15:50)
[2019-02-21] MEDS ORDERED: ACETAMINOPHEN 650 MG SUPP PR PRN (15:50)
[2019-02-21] MEDS ORDERED: METOCLOPRAMIDE 10 MG/2 ML VIAL IVP PRN (15:50)
[2019-02-21] MEDS ORDERED: LACTULOSE 20 GM/30 ML UDCUP PO PRN (15:50)
[2019-02-21] MEDS ORDERED: D50W 25 GM/50 ML SYR IVP PRN (15:50)
[2019-02-21] MEDS ORDERED: CEPACOL LOZENGE PO PRN (15:50)
[2019-02-21] MEDS ORDERED: ONDANSETRON 4 MG/2 ML VIAL IVP PRN (15:50)
[2019-02-21] MEDS ORDERED: ALBUMIN 5% 250 ML IV PRN (15:50)
[2019-02-21] MEDS ORDERED: BISACODYL 10 MG SUPP PR PRN (15:50)
[2019-02-21] MEDS ORDERED: SODIUM CL NASAL 45 ML BTL EACHNARE PRN (15:50)
[2019-02-21] MEDS ORDERED: NS 1,000 ML IV SCH (16:00)
[2019-02-21] MEDS ORDERED: INSULIN REGULAR HUMAN 100 UNIT in NS 100 ML IV SCH (16:00)
--- NOTE | 2019-02-21 16:04 | GOP ---
[f rep st] OPERATIVE REPORT DATE OF OPERATION: 02/21/2019 SURGEON: Juan Wright MD MANAGER CHANGE: PHILIP Tamayo. PREOPERATIVE DIAGNOSIS: Coronary artery disease with unstable angina and acute myocardial infarction . POSTOPERATIVE DIAGNOSIS: Coronary artery disease with unstable angina and acute myocardial infarctio n. PROCEDURE PERFORMED: Quadruple coronary artery bypass grafting. Summary of grafts: Left internal m ammary artery to the left anterior descending, saphenous vein graft from the aorta to D1, saphenous v ein graft from the aorta to M1, status vein graft from the aorta to distal right coronary artery. En doscopic vein harvest from the right leg. FINDINGS: The pericardial space was free. The aorta was soft. The vein was a good quality 2 to 4 m m vessel. The mammary was a good quality vessel. The distal targets were reasonable with a large ri ght coronary target. The lumen of the marginal vessel, which was subtotally occluded, was measured a t 1.25 mm with a shunt. The diagonal was a good quality big vessel and the distal left anterior desc ending was small at 1.5 mm. INDICATIONS: The patient is a 63-year-old gentleman who was admitted with unstable angina. He had a troponin rise and cardiac catheterization showed multivessel coronary artery disease with subtotal o cclusion of the left anterior descending and marginal. He was recommended to undergo surgical revasc ularization. He does have a history of hyperlipidemia and diabetes. DESCRIPTION OF PROCEDURE: The patient was taken to the operating room and placed on the operating ta ble in the supine position. After the induction of general anesthesia and single-lumen endotracheal tube intubation, the patient was prepped and draped sterilely. A standard median sternotomy was perf ormed and the left internal mammary artery was taken down with electrocautery and hemoclips. The pat ient was fully heparinized. Mammary was divided and found to have good flow. Next, the patient was cannulated with Sarns 8.0 Soft-Flow aortic cannula, as well as a dual-stage venous right atrial cannu la. Cardiopulmonary bypass was instituted and the distal vessels were marked for grafting. The cros s-clamp was applied and the heart was arrested with 1 L of [place] solution. The distal right coron lluvia was opened and anastomosed end-to-side to a vein graft using running 7-0 Prolene. Next, on the l ateral wall. We had a bifurcating vein graft, so one of the distal anastomoses was sewn end-to-side to the marginal. This was a small vessel. It was a small-caliber vein to match. The other half of the Y branch was sewn end-to-side to the diagonal. Next, attention was directed to the left anterior descending. It was opened in its third portion. It was very small, no greater than 1.5 mm. It was anastomosed end-to-side to the left internal mammary artery using running 7-0 Prolene. This was all owed to flow freely as it was tacked to the epicardium. Next, the cross-clamp was removed and a part ial occlusion clamp was placed and 2 proximal anastomoses were sewn on the ascending aorta using runn ing 6-0 Prolene. These were de-aired and allowed to flow freely. Left, right and mediastinal chest tubes were placed. Two ventricular pacing wires were also placed. The patient was from by pass without difficulty and the post-pump transesophageal echo shows no significant wall motion abnor malities and left ventricular function is normal. The protamine was administered. The patient was d ecannulated. All the cannulation sites were doubly secured with Prolene suture and after hemostasis had been achieved, the heart was then covered with pericardium and fat and the chest was closed with #6 stainless steel wires. Subcutaneous tissue and skin were closed with running Vicryl suture. The patient tolerated the procedure well and was returned to the ICU without inotropic support, blood pre ssure over 100 and in a normal sinus rhythm in the 70s. /[id number]/MODL
[2019-02-21] MEDS ORDERED: NALOXONE HCL 0.4 MG/ML INJ IVP PRN (16:21)
--- NOTE | 2019-02-21 16:21 | POSTANESTH ---
Post Anesthetic Evaluation Cardiovascular Status: Normal, Stable, Similar to Pre-Op Cond Respiratory Status: Other, See Comment (stable on vent) Level of Consciousness/Mental Status: Other, See Comment (sedated on propofol) Pain Control: Adequate, Prn Tx Ordered Nausea/Vomiting Control: Adequate, Prn Tx Ordered Complications Possibly Related to Anesthesia: None Noted
--- NOTE | 2019-02-21 16:27 | HOSPPROG ---
Hospitalist Progress Note Assessment/Plan: #CAD: s/p 4V-CAGB today -tolerated well, not requiring inotropes #TN/unstable angina: cath showed MV-disease. Surgery as above #DM2: insulin gtt #Obesity: counseled on diet/exercise #Accelerated HTN: ASA, statin, BB #Acute hypoxemic resp failure: intubated for surgery. Extubate later today #Low-grade fever: last night. CXR and cultures negative Disp: monitor in ICU admission, intubated, s/p CABG. Subjective: s/p CABG Objective: Vital Signs Temp Pulse Resp BP Pulse Ox 37.1 C 94 94 H 152/100 H 98 02/21/19 09:15 02/21/19 16:20 02/21/19 16:20 02/21/19 16:20 02/21/19 16:20 02/20/19 02/21/19 02/22/19 05:59 05:59 05:59 Intake Total 300 990 Balance 300 990 PT 13.1 SEC (12.0-15.0) 02/19/19 04:04 INR 1.03 (0.83-1.16) 02/19/19 04:04 - Physical Exam Constitutional: other (sedated) Eyes: other (intubated) Cardiovascular: regular rate and rhythym, other (mediastinal chest tubes in place with sanginous drainage) Respiratory: no respiratory distress Gastrointestinal: normoactive bowel sounds Genitourinary: gillette in urethra Skin: other (cool shins/feet) Musculoskeletal: other (sedated) Neurologic: other (sedated) ICD10 Worksheet Patient Problems: Problems Problem Status Onset Chest pain Acute
[2019-02-21] MEDS: fentaNYL 100 MCG/2 ML INJ IVP PRN ×5 (16:30→22:18)
[2019-02-21] MEDS: METOPROLOL TARTRATE 50 MG TAB PO SCH (16:44)
[2019-02-21] MEDS: Empagliflozin [Jardiance] 10 MG PO SCH (16:44)
[2019-02-21] MEDS: NITROGLYCERIN 2% 1 GM PACKET TP SCH ×2 (16:46→16:47)
[2019-02-21] MEDS: INSULIN LISPRO 100 UNIT/ML SC SCH ×2 (16:46→16:47)
[2019-02-21] MEDS: ASPIRIN 325 MG TAB PO SCH (16:47)
[2019-02-21] MEDS: POTASSIUM Cl (KCl) 50 ML IV PRN (17:13)
--- NOTE | 2019-02-21 18:50 | GCON ---
[f rep st] CONSULTATION PULMONARY CRITICAL CARE CONSULTATION DATE OF CONSULTATION: 02/21/2019 REASON FOR CONSULTATION: Open heart surgery, coronary artery disease. HISTORY: The patient is a 63-year-old gentleman who is visiting from [place], [place]. He has a hi story of diabetes mellitus, hyperlipidemia, hypertension, and previous tobacco abuse. He developed e xertional chest pain here, followed by chest pain at rest. He was uncomfortable enough and presented to the emergency department. Initial troponin was negative. CT angiogram of the chest was negative . He was seen by Cardiology. He was taken to the radiographer cardiac catheterization where he was found to have severe multive ssel coronary artery disease involving the left anterior descending, circumflex, and right coronary a rtery. Left ventricular ejection fraction was 65%. Cardiovascular surgical consultation was bronson nicole. He was taken to the operating room today and 4 vessel coronary artery bypass grafting was accompl ished without complication. He was returned to the intensive care unit on the ventilator, starting to wake up. He is not on pres sors. Blood loss was not excessive. He received small amounts of phenylephrine during his surgery. He is weaning per protocol. PAST MEDICAL HISTORY: Remarkable for issues as outlined above, including systemic hypertension, hype rlipidemia, previous tobacco use, type 2 diabetes, obstructive sleep apnea, obesity, and history of p revious hepatitis C. SOCIAL HISTORY: He is , retired, lives in [place]. He is no longer smoking. Significant alc ohol is negative. PHYSICAL EXAMINATION: GENERAL: Reveals a gentleman who is starting to wake up postoperatively. He moves all extremities, starting to follow simple commands. VITAL SIGNS: Current blood pressure is 1 50/100, heart rate 94 with sinus rhythm on the monitor. He is on the ventilator. Saturations are 98 %. Respiratory rate is 24. Temperature is 38. CVP is 9. HEENT: Remarkable for the oral endotrach eal tube being in place. Pupils are equal. CHEST: Clear bilaterally. HEART: Regular in rate and rhythm. There are no gallops. Sternal dressing is in place with chest/mediastinal tubes with some b loody drainage. ABDOMEN: Soft. Bowel sounds are currently absent. GENITOURINARY: A Le cathete r is in place. He is making urine. EXTREMITIES: Cool, with an Jarred wrap on the right. NEUROLOGIC: Examination is nonfocal and he is starting to follow simple commands. DATABASE: Postoperative chest x-ray is pending. Glucose is 118. Postoperative laboratory is pending. ASSESSMENT: 1. Status post open heart surgery, 4-vessel coronary artery bypass grafting. He is doing well posto peratively. He is not requiring pressor therapy. He remains on the ventilator. Can likely wean suc cessfully over the next several hours. 2. Postoperative respiratory insufficiency secondary to #1. He may have a component of underlying c hronic obstructive pulmonary disease secondary to previous tobacco abuse. However, this would appear to likely be mild. 3. History of systemic hypertension. Blood pressure postoperatively appears to be elevated, but thi s may be in part secondary to pain and anxiety as he wakes up initially. 4. Type 2 diabetes. Glucoses are elevated. He is on insulin drip per protocol. 5. History of other medical problems as outlined above. RECOMMENDATIONS: The patient will be weaned from the ventilator per protocol. I anticipate this kai l be in the next several hours. Chest x-ray and laboratory will be reviewed when available. Blood p ressure will be followed. Chest x-ray and laboratory will be followed in the a.m. Aspirin is being given. Appropriate pain control will be maintained. Insulin will be continued. Metoprolol and JARRED inhibitors will be started. Further plans and recommendations will be made based on his progress over the next 12-24 hours. /[id number]/MODL
[2019-02-21] MEDS: MUPIROCIN 2% 22 GM OINT NS SCH (21:25)
[2019-02-21] MEDS: ceFAZolin 2 GM/DEXTROSE 100 ML IV SCH (21:26)
[2019-02-21] MEDS: ACETAMINOPHEN 325 MG TAB PO PRN (22:31)
[2019-02-21] MEDS: HYDROCODONE/APAP 5/325 TAB PO PRN (22:32)
[2019-02-22] MEDS: fentaNYL 100 MCG/2 ML INJ IVP PRN ×2 (00:02→03:21)
[2019-02-22] MEDS: niCARdipine/NACL 200 ML IV SCH ×2 (01:08→02:41)
[2019-02-22] MEDS: POTASSIUM Cl (KCl) 50 ML IV PRN (01:10)
[2019-02-22] MEDS: HYDROCODONE/APAP 5/325 TAB PO PRN ×5 (02:41→20:47)
[2019-02-22 04:51] LABS: PLATELET COUNT 146 10^3/uL (150-400)
[2019-02-22] MEDS: ceFAZolin 2 GM/DEXTROSE 100 ML IV SCH ×3 (05:58→20:43)
--- NOTE | 2019-02-22 07:17 | SOAPPROG ---
SOAP Progress Note Assessment/Plan: Assessment: POD#1 CABG x 4 (FARMER-LAD, bifurcating SV-D1-OM1, SV-RCA), EVH RLE Sx severe CAD/NSTEMI with preserved LV systolic fx - s/p CABG. Stable early postop course. Extubated without incident. No pressor support. No dysrhythmias. No sig volume overload. Secondary prevention with ASA, BB and statin when appropriate. Adjunctive ACEI/ARB if sufficient BP Acute expected blood loss anemia - Stable. No transfusions needed. No evidence bleeding. VTE prophylaxis with SCDs. RYLIE on CPAP - Home machine at home but to be mailed. DM2 - Well controlled by preop A1c of 6.9%. Postop hyperglycemia controlled with insulin gtt. Transition to basal/bolus insulin and eventual home OHA per hospitalist. Non [place] resident, visiting from [place] - Has relatives in [place] with whom he and his can stay until able to travel back to [place]. Await PT recs next couple days for dispo planning. Plan: Routine POD#1 orders re lines, wires, orals, drains and mobility. Start metoprolol tartrate 12.5 mg BID w conservative hold parameters. Consider remove mediastinal drain. Tx to PCU. 02/22/19 07:13 Subjective: Hurting around CT sites, but tolerable. No dizziness or nausea. Not hungry. Objective: Vital Signs Temp Pulse Resp BP Pulse Ox 37.7 C 108 H 22 H 130/60 H 91 L 02/22/19 05:00 02/22/19 06:00 02/22/19 06:00 02/22/19 06:00 02/22/19 06:00 Laboratory Results 02/22/19 04:07 02/22/19 04:07 02/21/19 02/22/19 02/23/19 05:59 05:59 05:59 Intake Total 990 1064 Output Total 2879 Balance 990 -1815 PT 13.1 SEC (12.0-15.0) 02/19/19 04:04 INR 1.03 (0.83-1.16) 02/19/19 04:04 SR/ST overnoc, rates < 110. MAPs > 75 with CI > 2.5, excellent UOP and stable renal fx. 4 lpm suppl O2 req. No sig CTOP. CXR-> No PTX, min pulm vasc congestion, no undrained effusions, left basilar atelectasis. Labs as expected. Physical Exam - Physical Exam General Appearance: alert, no apparent distress Respiratory: lungs clear (grossly), other (CTs x 3 y-d to pleurovac, serosang drainage, no air leak) Cardiac/Chest: regular rate, rhythm, tachycardia, other (Sternal dressing CDI. Vwires intact.) Abdomen: normal bowel sounds, non-tender, soft Skin: warm/dry Extremities: swelling (trace), other (RLE leg wrap intact) ICD10 Worksheet Patient Problems: Problems Problem Status Onset Chest pain Acute
[2019-02-22] MEDS ORDERED: traMADol 50 MG TAB PO PRN (08:08)
[2019-02-22] MEDS: MUPIROCIN 2% 22 GM OINT NS SCH ×2 (08:29→20:43)
[2019-02-22] MEDS ORDERED: METOPROLOL TARTRATE 25 MG TAB PO SCH ×2 (09:00→21:00)
--- NOTE | 2019-02-22 13:37 | HOSPPROG ---
Hospitalist Progress Note Assessment/Plan: DIAGNOSES: * Unstable angina, resolved * Coronary artery disease * 4 vessel CABG 02/21 * Accelerated hypertension, doing better on current treatment * Acute hypoxemic respiratory failure * Low-grade fever on 02/20 * Type 2 diabetes mellitus, sugars well controlled overnight and through the day on insulin drip which he just stopped recently, will follow sugars closely, currently has sliding scale ordered * Obesity SUBJECTIVE: Feels well Little pain Has been up ambulating Minimal dyspnea Hungry, reading menu now to ordered in her OBJECTIVE Vitals reviewed: Respiratory , pulse had been high through night and early now down to 90s, blood pressure is good, no fever Oxygen: 3 L nasal cannula 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 Manager, my review: Exam: alert oriented skin warm dry color ok resps not labored lungs clear BSs heart regular abd soft nondistended nontender, bowel sounds present limbs warm, no edema iv site ok Lab data: White blood cell count 15, hemoglobin stable at 13, platelets slightly low Stable renal function and electrolytes, blood sugars in good range Objective: Vital Signs Temp Pulse Resp BP Pulse Ox 37 C 98 26 H 109/72 91 L 02/22/19 12:00 02/22/19 12:00 02/22/19 12:00 02/22/19 12:00 02/22/19 12:00 Laboratory Results 02/22/19 04:07 02/22/19 04:07 02/21/19 02/22/19 02/23/19 06:59 06:59 06:59 Intake Total 990 1064 500 Output Total 2879 150 Balance 990 -1815 350 PT 13.1 SEC (12.0-15.0) 02/19/19 04:04 INR 1.03 (0.83-1.16) 02/19/19 04:04 ICD10 Worksheet Patient Problems: Problems Problem Status Onset Chest pain Acute
[2019-02-22] MEDS ORDERED: D50W 25 GM/50 ML SYR IVP PRN ×2 (15:34→15:40)
[2019-02-22] MEDS ORDERED: ASPIRIN 81 MG CHEWABLE TAB TUBE PRN (15:50)
--- NOTE | 2019-02-22 15:58 | PDINTPN ---
Penology Professor Progress Note Assessment/Plan: Assessment: Coronary artery disease, status post coronary artery bypass grafting x4. Doing well postoperatively. Per [facility] Type 2 diabetes. Coming off of IV insulin. Will start sliding scale. We can restart his oral hypoglycemic tomorrow: This may not be formulary? Metabolic: No issues identified. History tobacco abuse. Probably has mild COPD? May need oxygen at discharge. Negative CT a on admission. No emphysema, pulmonary nodules, other significant abnormalities. Prophylaxis: DVT-SCDs. GI-pantoprazole Plan: Continue care. Can transfer to PCU status. Start sliding scale insulin. Follow glucoses, laboratory. Continue oxygen, IS. Subjective: Doing well. No significant pain or shortness of breath. Up in chair. Objective: Vital Signs Temp Pulse Resp BP Pulse Ox 37 C 96 23 H 122/77 H 93 02/22/19 12:00 02/22/19 13:57 02/22/19 13:57 02/22/19 13:57 02/22/19 13:57 Laboratory Results 02/22/19 04:07 02/22/19 04:07 02/21/19 02/22/19 02/23/19 05:59 05:59 05:59 Intake Total 990 1064 500 Output Total 2879 300 Balance 990 -1815 200 PT 13.1 SEC (12.0-15.0) 02/19/19 04:04 INR 1.03 (0.83-1.16) 02/19/19 04:04 CXR: Left lower lobe retrocardiac infiltrate/atelectasis. Otherwise clear. Lines and tubes in good position Physical Exam - Physical Exam General Appearance: alert, no apparent distress EENT: PERRL/EOMI, other (Nasal cannula in place at 3 L) Neck: normal inspection (Relatively large neck. JVP difficult to assess) Respiratory: lungs clear (Anteriorly), decreased breath sounds, rales (Few at bases), No rhonchi, No wheezing Cardiac/Chest: regular rate, rhythm, other (Chest/mediastinal tubes in place. Not much drainage at this point.), No gallop Abdomen: non-tender, soft, No normal bowel sounds (Decreased, present) Male Genitalia: other (Le catheter removed, good urine output) Skin: normal color, warm/dry Extremities: pedal edema (Trace) Neuro/Psych: no motor/sensory deficits, No cognition abnormalities ICD10 Worksheet Patient Problems: Problems Problem Status Onset Chest pain Acute
[2019-02-22] MEDS: PANTOPRAZOLE SODIUM 40 MG TAB PO SCH (16:06)
[2019-02-22] MEDS: ASPIRIN 81 MG CHEWABLE TAB PO SCH (16:07)
[2019-02-22] MEDS: INSULIN REGULAR HUMAN 100 UNIT/ML UNIT SC SCH ×2 (17:01→21:18)
[2019-02-22] MEDS: SENNOSIDES/DOCUSATE SODIUM TAB PO SCH (20:44)
[2019-02-23] MEDS: HYDROCODONE/APAP 5/325 TAB PO PRN ×2 (04:26→21:07)
[2019-02-23] MEDS: ceFAZolin 2 GM/DEXTROSE 100 ML IV SCH (04:27)
[2019-02-23 04:36] LABS: PLATELET COUNT 159 10^3/uL (150-400)
--- NOTE | 2019-02-23 07:43 | SOAPPROG ---
SOAP Progress Note Assessment/Plan: Assessment: POD#2 CABG x 4 (FARMER-LAD, bifurcating SV-D1-OM1, SV-RCA), EVH RLE Sx severe CAD/NSTEMI with preserved LV systolic fx - s/p CABG. Stable early postop course. Extubated without incident. No pressor support. No dysrhythmias. No sig volume overload. Secondary prevention with ASA, BB and statin when appropriate. Adjunctive ACEI/ARB if sufficient BP. Acute expected blood loss anemia - Stable. No transfusions needed. No evidence bleeding. VTE prophylaxis with SCDs. RYLIE on CPAP - Home machine at home but to be mailed. DM2 - Well controlled by preop A1c of 6.9%. Postop hyperglycemia controlled with insulin gtt. Transition to basal/bolus insulin and eventual home OHA per hospitalist. Non [place] resident, visiting from [place] - Has relatives in [place] with whom he and his can stay until able to travel back to [place]. Await PT recs next couple days for dispo planning. Dispo: Start diuresis Check K tomorrow Monitor oxygen requirements Remove TCPW tomorrow Increase BB Start statin tomorrow Subjective: Doing well. Objective: CXR - LLL atelectasis Labs okay Vital Signs Temp Pulse Resp BP Pulse Ox 37.5 C 109 H 20 132/77 H 95 02/23/19 03:46 02/23/19 03:46 02/23/19 03:46 02/23/19 03:46 02/23/19 03:46 Laboratory Results 02/23/19 04:15 02/23/19 04:15 02/22/19 02/23/19 02/24/19 05:59 05:59 05:59 Intake Total 1064 2706 Output Total 2879 820 Balance -1815 1886 PT 13.1 SEC (12.0-15.0) 02/19/19 04:04 INR 1.03 (0.83-1.16) 02/19/19 04:04 - Physical Exam General Appearance: alert, no apparent distress Respiratory: lungs clear (grossly) Cardiac/Chest: sinus tachycardia, other (Sternal dressing CDI. Vwires intact.) Abdomen: normal bowel sounds, non-tender, soft Skin: warm/dry Extremities: swelling (trace), evh cdi ICD10 Worksheet Patient Problems: Problems Problem Status Onset Chest pain Acute
--- NOTE | 2019-02-23 09:15 | ASMTCMCOM ---
CM Note CM Note Notes: Pt had a CABG x4. PT/OT has cleared pt to d/c home without any services. Pt has relatives in the [place] and can stay w/ them before traveling back to [place]. CM available for changes. Plan: Independent Date Signed: 02/23/2019 09:14 AM Electronically Signed By:JOSE R Drake
[2019-02-23] MEDS: PANTOPRAZOLE SODIUM 40 MG TAB PO SCH (09:22)
[2019-02-23] MEDS: POTASSIUM CL 10 MEQ TAB PO SCH (09:22)
[2019-02-23] MEDS: FUROSEMIDE 20 MG TAB PO SCH (09:22)
[2019-02-23] MEDS: METOPROLOL TARTRATE 25 MG TAB PO SCH ×2 (09:22→21:08)
[2019-02-23] MEDS: ASPIRIN 81 MG CHEWABLE TAB PO SCH (09:22)
[2019-02-23] MEDS: SENNOSIDES/DOCUSATE SODIUM TAB PO SCH ×2 (09:23→23:40)
[2019-02-23] MEDS: MUPIROCIN 2% 22 GM OINT NS SCH (09:28)
[2019-02-23] MEDS: INSULIN REGULAR HUMAN 100 UNIT/ML UNIT SC SCH ×4 (09:30→21:00)
[2019-02-23] MEDS: ACETAMINOPHEN 325 MG TAB PO PRN (15:17)
[2019-02-24] MEDS: HYDROCODONE/APAP 5/325 TAB PO PRN ×2 (01:32→22:29)
[2019-02-24 06:03] LABS: PLATELET COUNT 198 10^3/uL (150-400)
[2019-02-24] MEDS: ACETAMINOPHEN 325 MG TAB PO PRN ×3 (07:40→18:11)
[2019-02-24] MEDS: SENNOSIDES/DOCUSATE SODIUM TAB PO SCH ×2 (08:03→20:57)
[2019-02-24] MEDS ORDERED: ALBUMIN 5% 250 ML IV ONE (08:28)
[2019-02-24] MEDS: INSULIN REGULAR HUMAN 100 UNIT/ML UNIT SC SCH ×4 (08:41→21:53)
--- NOTE | 2019-02-24 08:56 | CPEKG ---
Test Reason : OPEN Blood Pressure : / mmHG Vent. Rate : 084 BPM Atrial Rate : 083 BPM P-R Int : 170 ms QRS Dur : 095 ms QT Int : 406 ms P-R-T Axes : 011 -69 057 degrees QTc Int : 480 ms Sinus rhythm Inferior infarct, old QTc prolongation still noted Confirmed by Steven Cobb ([id number]) on 02/24/2019 8:55:55 AM Referred By: Savage Ortez Confirmed By:Steven Cobb
--- NOTE | 2019-02-24 09:43 | CPEKG ---
Test Reason : OPEN Blood Pressure : / mmHG Vent. Rate : 077 BPM Atrial Rate : 077 BPM P-R Int : 173 ms QRS Dur : 099 ms QT Int : 474 ms P-R-T Axes : 020 -67 043 degrees QTc Int : 537 ms Sinus rhythm Inferior infarct, old Prolonged QT interval Confirmed by Steven Cobb ([id number]) on 02/24/2019 9:43:25 AM Referred By: Savage Ortez Confirmed By:Steven Cobb
--- NOTE | 2019-02-24 09:47 | HOSPPROG ---
Hospitalist Progress Note Assessment/Plan: DIAGNOSES: * Unstable angina, resolved * Coronary artery disease * 4 vessel CABG 02/21 * Accelerated hypertension, doing better on current treatment * Acute hypoxemic respiratory failure; still using some O2 * Low-grade fever has resolved * Type 2 diabetes mellitus, sugars well controlled at present; received only 4 units insulin total over past 40 hours * Obesity SUBJECTIVE: Feels well some pain ambulating better Hungry, reading menu now to ordered in her OBJECTIVE Vitals reviewed: Respiratory 26-31, pulse had been high through night and early now down to 90s, blood pressure is good, no fever Oxygen: 3 L nasal cannula 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, my review: Exam: alert oriented skin warm dry color ok wounds all look good resps not labored lungs clear BSs heart regular abd soft nondistended nontender, bowel sounds present limbs warm, no edema iv site ok Lab data: wbc better, Hg stable sugars in target range for inpatient Objective: Vital Signs Temp Pulse Resp BP Pulse Ox 36.9 C 105 H 20 103/78 96 02/24/19 07:42 02/24/19 07:42 02/24/19 07:42 02/24/19 07:42 02/24/19 07:42 Laboratory Results 02/24/19 05:15 02/24/19 05:15 02/23/19 02/24/19 02/25/19 06:59 06:59 06:59 Intake Total 2706 1200 Output Total 820 325 350 Balance 1886 875 -350 PT 13.1 SEC (12.0-15.0) 02/19/19 04:04 INR 1.03 (0.83-1.16) 02/19/19 04:04 ICD10 Worksheet Patient Problems: Problems Problem Status Onset Chest pain Acute
[2019-02-24] MEDS: POTASSIUM CL 10 MEQ TAB PO SCH (09:55)
[2019-02-24] MEDS: ASPIRIN 81 MG CHEWABLE TAB PO SCH (09:55)
[2019-02-24] MEDS: FUROSEMIDE 20 MG TAB PO SCH (09:55)
[2019-02-24] MEDS: METOPROLOL TARTRATE 50 MG TAB PO SCH ×2 (09:56→20:56)
[2019-02-24] MEDS: PANTOPRAZOLE SODIUM 40 MG TAB PO SCH (09:56)
--- NOTE | 2019-02-24 11:09 | SOAPPROG ---
SOAP Progress Note Assessment/Plan: Assessment: POD#3 CABG x 4 (FARMER-LAD, bifurcating SV-D1-OM1, SV-RCA), EVH RLE Sx severe CAD/NSTEMI with preserved LV systolic fx - s/p CABG. Stable early postop course. Extubated without incident. No pressor support. No dysrhythmias. No sig volume overload. Secondary prevention with ASA, BB and statin. Adjunctive ACEI/ARB if sufficient BP. Acute expected blood loss anemia - Stable. No transfusions needed. No evidence bleeding. VTE prophylaxis with SCDs. RYLIE on CPAP - Home machine at home but to be mailed. Desats into the night as expected. DM2 - Well controlled by preop A1c of 6.9%. Postop hyperglycemia controlled with insulin gtt. Transition to basal/bolus insulin and eventual home OHA per hospitalist. Non [place] resident, visiting from [place] - Has relatives in [place] with whom he and his can stay until able to travel back to [place]. PT rec home with outpatient rehab. Dispo: Cont gentle diuresis Check K tomorrow Remove TCPW today Increase BB Start statin tonight Encourage PO intake Anticipate home tomorrow or Thursday, will need home oxygen Subjective: Doing well. Awaiting arrival of home CPAP. Objective: CXR reviewed - tiny apical pneumo, LLE atelectasis Vital Signs Temp Pulse Resp BP Pulse Ox 36.9 C 103 H 20 104/76 96 02/24/19 07:42 02/24/19 09:56 02/24/19 07:42 02/24/19 09:56 02/24/19 07:42 Laboratory Results 02/24/19 05:15 02/24/19 05:15 02/23/19 02/24/19 02/25/19 05:59 05:59 05:59 Intake Total 2706 1200 Output Total 820 325 350 Balance 1886 875 -350 PT 13.1 SEC (12.0-15.0) 02/19/19 04:04 INR 1.03 (0.83-1.16) 02/19/19 04:04 - Physical Exam General Appearance: alert, no apparent distress Respiratory: lungs clear (grossly) Cardiac/Chest: NSR, other (Sternal dressing CDI. Vwires intact.) Abdomen: normal bowel sounds, non-tender, soft Skin: warm/dry Extremities: swelling (trace), evh cdi ICD10 Worksheet Patient Problems: Problems Problem Status Onset Chest pain Acute
[2019-02-24] MEDS: ATORVASTATIN CALCIUM 20 MG TAB PO SCH (21:18)
--- NOTE | 2019-02-25 07:26 | SOAPPROG ---
SOAP Progress Note Assessment/Plan: Assessment: POD#4 CABG x 4 (FARMER-LAD, bifurcating SV-D1-OM1, SV-RCA), EVH RLE Sx severe CAD/NSTEMI with preserved LV systolic fx - s/p CABG. Stable early postop course. Extubated without incident. No pressor support. No dysrhythmias. No sig volume overload. Secondary prevention with ASA, BB and statin. Adjunctive ACEI/ARB if sufficient BP. HR borderline high 90-100's. Would like to increase BB, however, SBP ~100 mmHg. Acute expected blood loss anemia - Stable. No transfusions needed. No evidence bleeding. VTE prophylaxis with SCDs. RYLIE on CPAP - Home machine at home to be mailed. Desats into the night as expected. Should be here tomorrow per patient. DM2 - Well controlled by preop A1c of 6.9%. Postop hyperglycemia controlled with insulin gtt. Transition to basal/bolus insulin and eventual home OHA per hospitalist. Non [place] resident, visiting from [place] - Has relatives in [place] with whom he and his can stay until able to travel back to [place]. PT rec home with outpatient rehab. Dispo: Last day for diuresis Home Thursday o/p cardiac rehab, will need home oxygen Instructed to reach out to PCP to find school custodian in [place] Subjective: "Going with the flow" Objective: Vital Signs Temp Pulse Resp BP Pulse Ox 37.0 C 100 16 105/78 94 02/25/19 04:00 02/25/19 04:00 02/25/19 04:00 02/25/19 04:00 02/25/19 04:00 Laboratory Results 02/24/19 05:15 02/25/19 05:25 02/24/19 02/25/19 02/26/19 05:59 05:59 05:59 Intake Total 1200 900 Output Total 325 1850 Balance 875 -950 PT 13.1 SEC (12.0-15.0) 02/19/19 04:04 INR 1.03 (0.83-1.16) 02/19/19 04:04 K 3.8 - Physical Exam General Appearance: alert, no apparent distress Respiratory: lungs clear (grossly) Cardiac/Chest: ST, other (Sternal dressing CDI. ) Abdomen: normal bowel sounds, non-tender, soft Skin: warm/dry Extremities: swelling (trace), evh cdi ICD10 Worksheet Patient Problems: Problems Problem Status Onset Chest pain Acute
[2019-02-25] MEDS: POTASSIUM CL 10 MEQ TAB PO SCH (07:53)
[2019-02-25] MEDS: FUROSEMIDE 20 MG TAB PO SCH (07:54)
[2019-02-25] MEDS: METOPROLOL TARTRATE 50 MG TAB PO SCH ×2 (07:54→20:42)
[2019-02-25] MEDS: PANTOPRAZOLE SODIUM 40 MG TAB PO SCH (07:54)
[2019-02-25] MEDS: SENNOSIDES/DOCUSATE SODIUM TAB PO SCH ×2 (07:54→20:42)
[2019-02-25] MEDS: INSULIN REGULAR HUMAN 100 UNIT/ML UNIT SC SCH ×4 (07:56→21:59)
[2019-02-25] MEDS: ASPIRIN 81 MG CHEWABLE TAB PO SCH (07:56)
--- NOTE | 2019-02-25 16:08 | ASMTCMCOM ---
CM Note CM Note Notes: Pt likely to discharge tomorrow independently with outpatient cardiac rehab. Pt comforatble with this plan, and will stay here in [place] with family until able to travel home to [place]. CM to follow. D/C Plan: Independent Date Signed: 02/25/2019 04:07 PM Electronically Signed By:Kaitlynn Farooq
--- NOTE | 2019-02-25 17:05 | HOSPPROG ---
Hospitalist Progress Note Assessment/Plan: DIAGNOSES: * Unstable angina, resolved * Coronary artery disease * 4 vessel CABG 02/21 * Accelerated hypertension, doing better on current treatment * Acute hypoxemic respiratory failure; still using some O2 * Low-grade fever has resolved * Type 2 diabetes mellitus, sugars well controlled at present -would start his jardiance when he goes home * Obesity SUBJECTIVE: Feels well overall, had 1 brief bit of low blood pressure after receiving his morning medicines today and this was symptomatic mildly some pain at sternum is getting better each day, really only feels that when he moves suddenly at this point ambulating well Hungry, eating well OBJECTIVE Vitals reviewed: Respirations good, no fever, 1 slightly low blood pressure, still some mild intermittent tachycardia Oxygen: 2 L nasal cannula with sats 94-95 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 Helper, my review: Sinus Exam: alert oriented skin warm dry color ok wounds all look good resps not labored lungs clear BSs heart regular abd soft nondistended nontender, bowel sounds present limbs warm, no edema iv site ok Lab data: sugars in target range for inpatient, 130-150 Objective: Vital Signs Temp Pulse Resp BP Pulse Ox 37.4 C 108 H 18 109/71 95 02/25/19 15:31 02/25/19 15:31 02/25/19 15:31 02/25/19 15:31 02/25/19 15:31 Laboratory Results 02/24/19 05:15 02/25/19 05:25 02/24/19 02/25/19 02/26/19 06:59 06:59 06:59 Intake Total 1200 900 Output Total 325 1850 750 Balance 875 -950 -750 PT 13.1 SEC (12.0-15.0) 02/19/19 04:04 INR 1.03 (0.83-1.16) 02/19/19 04:04 ICD10 Worksheet Patient Problems: Problems Problem Status Onset Chest pain Acute
[2019-02-25] MEDS: ATORVASTATIN CALCIUM 20 MG TAB PO SCH (20:42)
[2019-02-25] MEDS: HYDROCODONE/APAP 5/325 TAB PO PRN (22:37)
--- NOTE | 2019-02-26 08:30 | SOAPPROG ---
SOAP Progress Note Assessment/Plan: Assessment: POD#5 CABG x 4 (FARMER-LAD, bifurcating SV-D1-OM1, SV-RCA), EVH RLE Sx severe CAD/NSTEMI with preserved LV systolic fx - s/p CABG. Stable early postop course. Extubated without incident. No pressor support. No dysrhythmias. No sig volume overload. Secondary prevention with ASA, BB and statin. No ACEI/ ARB d/t low BP. HR borderline high 90-100's. Would like to increase BB, however , SBP 90-100's. Acute expected blood loss anemia - Stable. No transfusions needed. No evidence bleeding. VTE prophylaxis with SCDs. RYLIE on CPAP - Home machine at home to be mailed. Desats into the night as expected. Should be here today per patient. Currently on 2L NC. Will require home O2 at discharge. DM2 - Well controlled by preop A1c of 6.9%. Postop hyperglycemia controlled with insulin gtt. Transitioned to basal/bolus insulin and eventual home OHA per hospitalist. Non [place] resident, visiting from [place] - Has relatives in [place] with whom he and his can stay until able to travel back to [place]. PT rec home with outpatient rehab. Dispo: Home today with o/p cardiac rehab and home oxygen Instructed patient to reach out to PCP to find access nurse and cardiac rehab in [place] Subjective: Patient reports good pain control with Tylenol during the day and [place] at night. No complaints. Objective: Vital Signs Temp Pulse Resp BP Pulse Ox 37.1 C 102 H 20 109/76 92 02/26/19 07:26 02/26/19 07:26 02/26/19 07:26 02/26/19 07:26 02/26/19 07:26 Microbiology 02/20/19 18:28 Blood Culture - Final Blood 02/20/19 18:34 Blood Culture - Final Blood Laboratory Results 02/24/19 05:15 02/25/19 05:25 02/25/19 02/26/19 02/27/19 05:59 05:59 05:59 Intake Total 900 950 Output Total 1850 1150 300 Balance -950 -200 -300 PT 13.1 SEC (12.0-15.0) 02/19/19 04:04 INR 1.03 (0.83-1.16) 02/19/19 04:04 Physical Exam - Physical Exam General Appearance: WD/WN, alert, no apparent distress Neck: supple Respiratory: lungs clear, normal breath sounds, other (no wheezing or rhonchi) Cardiac/Chest: tachycardia, other (No murmurs or rubs. Sternum stable. Sternotomy c/d/i. ) Abdomen: normal bowel sounds, non-tender, soft Skin: normal color, warm/dry Extremities: other (Warm, mild pitting edema right lower extremity, no edema left leg. ) Neuro/Psych: alert, normal mood/affect, oriented x 3 ICD10 Worksheet Patient Problems: Problems Problem Status Onset Chest pain Acute
[2019-02-26] MEDS: ASPIRIN 81 MG CHEWABLE TAB PO SCH (08:36)
[2019-02-26] MEDS: SENNOSIDES/DOCUSATE SODIUM TAB PO SCH (08:36)
[2019-02-26] MEDS: INSULIN REGULAR HUMAN 100 UNIT/ML UNIT SC SCH ×2 (08:36→11:53)
[2019-02-26] MEDS: METOPROLOL TARTRATE 50 MG TAB PO SCH (08:37)
[2019-02-26] MEDS: ACETAMINOPHEN 325 MG TAB PO PRN (08:37)
[2019-02-26] MEDS: PANTOPRAZOLE SODIUM 40 MG TAB PO SCH (08:37)
--- NOTE | 2019-02-26 08:44 | HOSPPROG ---
Hospitalist Progress Note Assessment/Plan: DIAGNOSES: * Unstable angina, resolved * Coronary artery disease * 4 vessel CABG 02/21 * Accelerated hypertension, doing better on current treatment * Acute hypoxemic respiratory failure; still using some O2 * Low-grade fever has resolved * Type 2 diabetes mellitus, sugars well controlled at present * Obesity RECOMMENDATION: * RESUME JARDIANCE UPON DISCHARGE * CONTINUE DIABETIC DIET AND MONITORING SUBJECTIVE: no new symptoms or problems feels ready to go home OBJECTIVE Vitals reviewed: Respirations good, no fever, 1 slightly low blood pressure, still some mild intermittent tachycardia Oxygen: 2 L nasal cannula with sats 94-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, 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: Sinus Exam: alert oriented relaxed skin warm dry color ok wounds all look good resps not labored lungs clear BSs abd soft nondistended nontender, bowel sounds present iv site ok Lab data: sugars all but one in target range for inpatient, 130-150 with one 200 last evening (not on his usual jardiance here) Objective: Vital Signs Temp Pulse Resp BP Pulse Ox 37.1 C 102 H 20 109/76 92 02/26/19 07:26 02/26/19 07:26 02/26/19 07:26 02/26/19 07:26 02/26/19 07:26 Microbiology 02/20/19 18:28 Blood Culture - Final Blood 02/20/19 18:34 Blood Culture - Final Blood Laboratory Results 02/24/19 05:15 02/25/19 05:25 02/25/19 02/26/19 02/27/19 06:59 06:59 06:59 Intake Total 900 950 Output Total 1850 1450 Balance -950 -500 PT 13.1 SEC (12.0-15.0) 02/19/19 04:04 INR 1.03 (0.83-1.16) 02/19/19 04:04 ICD10 Worksheet Patient Problems: Problems Problem Status Onset Chest pain Acute
--- NOTE | 2019-02-26 09:30 | PDHOMEO2F ---
Home Oxygen Face to Face Home Orders: I certify that a physician or a nurse practitioner or physician's visitor services assistant has had a [id number] encounter with this patient on the date of this order due to the diagnosis listed, which relates to the primary reason the patient requires home oxygen. Alternative treatments have been tried, or considered, and deemed ineffective. It is anticipated that supplemental oxygen will result in improvement with treatment. Home oxygen qualifying diagnosis: sleep apnea Home oxygen secondary diagnosis: respiratory insufficiency s/p surgery SpO2 on room air (%): 87 Frequency of home oxygen needed: continuous Home oxygen liters per minute: 2 Home oxygen delivery device: nasal cannula Concentrator: Yes E-tanks for mobility and back up: Yes If ordering portable O2, is the patient mobile in the home?: Yes I certify that, based on these findings, the home oxygen is medically necessary for this patient for the following length of time. Length of time home oxygen needed: 99 years
--- NOTE | 2019-02-26 09:42 | ASMTLACE ---
LACE Length of stay for Answers: 7-13 days current admission Acuity / Level of Answers: Yes Care: Did the patient have an inpatient admission? Comorbidities - select Answers: Diabetes (uncontrolled or all that apply controlled) Other Notes: HLD # of Emergency department Answers: 1-2 visits in the last 6 months Score: 11 Date Signed: 02/26/2019 09:41 AM Electronically Signed By:Angelica Bal RN
--- NOTE | 2019-02-26 09:44 | ASMTDCNOTE ---
Case Management Discharge Discharge Order Complete? Answers: Yes Patient to Obtain Answers: via Family Medications Transportation Arranged Answers: Family/Friends Family Notified Answers: Yes Discharge Comments Notes: Medically cleared for discharge. Patient to have outpatient therapy per physician order. No needs identified. CM available should needs arise. Date Signed: 02/26/2019 09:43 AM Electronically Signed By:Angelica Bal RN
[2019-02-26 11:07] VITALS: BP 86/68
--- NOTE | 2019-02-26 15:46 | GDS ---
[f rep st] DISCHARGE SUMMARY DISCHARGE DIAGNOSIS: Coronary artery disease, [id number] myocardial infarction. CONDITION AT DISCHARGE: Stable. REASON FOR HOSPITALIZATION: The patient is a 63-year-old diabetic obese male who presented to the emergency room with chest pain. The patient was visiting from [place] and has friends here in [place]. The patient had been experiencing chest tightness over the last few days prior to his admission, as well as radiation of pain down his right arm with associated dyspnea on exertion. He was found to have an elevated troponin of 0.1 consistent with non- ST-elevation UT. He does carry a positive family history for coronary artery disease. Cardiac catheterization was performed which showed an ejection fraction of 65%, severe multivessel coronary artery disease including a 20% left main stenosis 90% proximal LAD stenosis, 90% mid LAD stenosis, occlusion of the proximal/midsegment of the left circumflex, and a 50% mid RCA stenosis. The patient was referred to Cardiac surgery for coronary artery bypass grafting evaluation. HOSPITAL COURSE: The patient was taken to the operating room by Dr. Juan Tamez on February 21, 2019, where he underwent coronary artery bypass grafting x4 with left internal mammary artery to the left anterior descending, saphenous vein graft to the Dx1, saphenous vein graft to the OM1, and saphenous vein graft to the distal RCA. Endoscopic vein was harvested from the patient's right leg. The patient tolerated the procedure well and was transferred to the ICU in stable condition. The patient was extubated without incident and enjoyed a relatively uneventful postoperative course. He did not require any pressor support and had no dysrhythmias. He was started on aspirin, metoprolol , and a higher dose of Lipitor postoperatively. An TANJA inhibitor/ARB was not initiated due to low normal blood pressures postoperatively. The patient was found to have some sinus tachycardia postop into the 100s, however, due to the patient's low normal blood pressure his metoprolol was not uptitrated. The patient did not require any blood transfusions and was not resumed on CPAP here in the hospital. However, he does have a CPAP machine that he uses for his obstructive sleep apnea that will be mailed to them today. His diabetes was controlled initially with an insulin drip and transitioned to a sliding scale of insulin. His home diabetes medications will be resumed at the time of discharge. The patient's pain was controlled. He was tolerating his diet and having bowel movements. He was deemed appropriate for discharge to his relatives in [place] on POD 5. The patient was instructed to follow up with Dr. Rodriguez in a week and a half. He was also instructed to follow up with his primary care physician in [place] in order to obtain recommendations for cardiologists in the area. He was also instructed to set up cardiac rehab in [place]. MEDICATIONS AT DISCHARGE: 1. Extra Strength Tylenol 500 to 1000 mg p.o. q.8 p.r.n. pain. 2. Aspirin 81 mg p.o. daily. 3. Lipitor 20 mg p.o. q.h.s. 4. Ramer 5/325 one to 2 tabs p.o. q.8 p.r.n. pain. 5. Metoprolol 50 mg p.o. b.i.d. PHYSICAL EXAM ON THE DAY OF DISCHARGE: GENERAL APPEARANCE: Well developed/well nourished, alert, in no apparent distress. NECK: Supple. RESPIRATORY: Lungs clear and normal breath sounds. No wheezing or rhonchi. CARDIAC/CHEST: Tachycardia, no murmurs or rubs. Sternum stable. Sternotomy clean, dry, and intact. ABDOMEN: Normal bowel sounds, nontender and soft. SKIN: Normal color. Warm and dry. EXTREMITIES: Warm, mild pitting edema of the right lower extremity, no edema of the left leg. NEURO/PSYCH: Alert, normal mood and affect, and oriented x3. INSTRUCTIONS PROVIDED TO PATIENT AT DISCHARGE: The patient should continue to observe sternal precautions for 6 to 8 weeks with no lifting, pushing, or pulling more than 10 to 15 pounds. He should continue with his diabetic diet. He should clean his incisions daily with soap and water in the shower. He should not submerge his incisions in water such as bathing, swimming pool, hot tub until all incisions are completely healed. FOLLOWUP APPOINTMENTS: The patient should follow up with Dr. Rodriguez as directed. He should also follow up with a tool machinist in [place] and was instructed to attend a cardiac rehab in [place]. /[id number]/MODL MTDD
--- NOTE | 2019-03-02 15:09 | PQFORM ---
PHYSICIAN QUERY FORM Needs Your Response This query form is being sent to you to assure this patient record is coded properly. Please respond to the question below: REDEYE GUNNER QUESTION: Dr Wright Progress Notes mention Acute Hypoxic Respiratory Failure but the diagnosis is not reflected in the Discharge Summary. Do you agree with the diagnosis? xx__ Yes __ No __ Other (Please Specify ) __ Unable to determine Thank You Yanci SALAS Olive Brine Tester INSTRUCTIONS FOR RESPONSE: Answer question by clicking on the "Edit Document" button. Move cursor to area below the stars. When complete, hit "Save." Click on the "Sign" button, then click "Sign" again. Type in your PIN and hit "Enter." MTDD
--- NOTE | 2019-03-02 15:12 | PQFORM ---
PHYSICIAN QUERY FORM Needs Your Response This query form is being sent to you to assure this patient record is coded properly. 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 Do you agree that this patient had Acute Blood Loss Anemia ? __xx Yes __ No __ Other (Please Specify ) __ Unable to determine Thank You Yanci SALAS Cheese Maker Answer question by clicking on the "Edit Document" button. Move cursor to area below the stars. When complete, hit "Save." Click on the "Sign" button, then click "Sign" again. Type in your PIN and hit "Enter." MTDD
== END 2019-02-26 14:24 | disposition home or self-care (01) | DRG 233 ==
LOC: F2W 08:00 → OBSVTOIN 16:41 → F2N 02-21 16:13 → F2W 02-22 18:40
PROVIDERS: ADMIT Student in an Organized Health Care Education/Training Program; ATTEND Thoracic Surgery (Cardiothoracic Vascular Surgery)
PROC: B2111ZZ Fluoroscopy of Multiple Coronary Arteries using Low Osmolar Contrast (ICD-10-PCS; 2019-02-19)
PROC: B2151ZZ Fluoroscopy of Left Heart using Low Osmolar Contrast (ICD-10-PCS; 2019-02-19)
PROC: 4A023N7 Measurement of Cardiac Sampling and Pressure, Left Heart, Percutaneous Approach (ICD-10-PCS; 2019-02-19)
PROC: 5A1221Z Performance of Cardiac Output, Continuous (ICD-10-PCS; principal; 2019-02-21 10:45)
PROC: 06BP4ZZ Excision of Right Saphenous Vein, Percutaneous Endoscopic Approach (ICD-10-PCS; principal; 2019-02-21 10:45)
PROC: 02100Z9 Bypass Coronary Artery, One Artery from Left Internal Mammary, Open Approach (ICD-10-PCS; principal; 2019-02-21 10:45)
PROC: 021209W Bypass Coronary Artery, Three Arteries from Aorta with Autologous Venous Tissue, Open Approach (ICD-10-PCS; principal; 2019-02-21 10:45)
DX: I21.4 Non-ST elevation (NSTEMI) myocardial infarction (principal); I25.110 Atherosclerotic heart disease of native coronary artery with unstable angina pectoris; J96.01 Acute respiratory failure with hypoxia; D62 Acute posthemorrhagic anemia; E11.9 Type 2 diabetes mellitus without complications; E78.5 Hyperlipidemia, unspecified; K21.9 Gastro-esophageal reflux disease without esophagitis; G47.33 Obstructive sleep apnea (adult) (pediatric); E66.9 Obesity, unspecified; I10 Essential (primary) hypertension; Z87.891 Personal history of nicotine dependence; Z86.19 Personal history of other infectious and parasitic diseases
CPT/HCPCS: 82435-PO; 82565-PO; 82947-PO; 83605-ER; 84132-PO; 84295-PO; 84484-ER; 84520-PO; 85014-ER; 96374; 97116-GP; 97162-GP; 97165-GO; 97530-GP; 97535-GO; C1760; G0378; J0153; J0171; J0282; J0330; J0690; J1250; J1265; J1644; J1650; J1815; J2001; J2150; J2250; J2260; J2370; J2405; J2440; J2704; J2720; J2930; J3010; J3475; J3480; P9041; Q9967

== ENCOUNTER → 2019-03-08 | Outpatient (CLI) | payer OTHER, BC | LOC: FIMAGING 09:21 | PROVIDERS: ATTEND Thoracic Surgery (Cardiothoracic Vascular Surgery) | DX: Z48.812 Encounter for surgical aftercare following surgery on the circulatory system (principal); Z95.1 Presence of aortocoronary bypass graft ==